=== PATIENT | male | born 1965 | race Caucasian/White ===

== ENCOUNTER 2018-06-18 01:20 | Emergency (ER) | payer OTHER ==
[2018-06-18] MEDS ORDERED: predniSONE 20 MG TAB ONE (01:46)
[2018-06-18] MEDS ORDERED: COLCHICINE 0.6 MG TAB ONE ×2 (01:47→02:46)
[2018-06-18] MEDS ORDERED: INDOMETHACIN 25 MG CAP ONE (02:02)
--- NOTE | 2018-06-18 02:43 | EDPHYS ---
Physician Documentation [facility] Name: Triston Swanson Age: 53 yrs Sex: Male : 1965 Arrival Date: 06/18/2018 Time: 01:21 Bed 25 Private MD: ED Physician Lenny Carvalho HPI: 06/18 02:12 This 53 yrs old Male presents to ER via Ambulatory with complaints of Gout \T\ jr8 Arthritis Flare up. 02:12 Patient with history of gout. Stated that she started to have another flare up. Pain in jr8 joints of fingers and hands along with left elbow and left knee. Last flare up was 4 months ago . Severity of symptoms: At their worst the symptoms were moderate in the emergency department the symptoms are unchanged. The patient has experienced similar episodes in the past, a few times. The patient has not recently seen a physician. Historical: - Allergies: 01:37 No Known Allergies; mg2 - Home Meds: 01:37 lisinopril Oral [Active]; Metoprolol Tartrate Oral [Active]; mg2 - PMHx: 01:37 Depression; Hypertension; Gout; mg2 - PSHx: 01:37 left arm surgery; mg2 - Immunization history:: Flu vaccine is not up to date. - Social history:: Smoking status: Patient/guardian denies using tobacco, Patient uses alcohol, weekly. - Ebola Screening: : No symptoms or risks identified at this time. ROS: 02:12 Eyes: Negative for injury, pain, redness, and discharge, ENT: Negative for injury, jr8 pain, and discharge, Neck: Negative for injury, pain, and swelling, Cardiovascular: Negative for chest pain, palpitations, and edema, Respiratory: Negative for shortness of breath, cough, wheezing, and pleuritic chest pain, Abdomen/GI: Negative for abdominal pain, nausea, vomiting, diarrhea, and constipation, Back: Negative for injury and pain, Skin: Negative for injury, rash, and discoloration, Neuro: Negative for headache, weakness, numbness, tingling, and seizure. 02:12 MS/extremity: Positive for pain, swelling, tenderness, of the right hand and left hand, left knee, left elbow . Exam: 02:12 Eyes: Pupils equal round and reactive to light, extra-ocular motions intact. Lids and jr8 lashes normal. Conjunctiva and sclera are non-icteric and not injected. Cornea within normal limits. Periorbital areas with no swelling, redness, or edema. ENT: Nares patent. No nasal discharge, no septal abnormalities noted. Tympanic membranes are normal and external auditory canals are clear. Oropharynx with no redness, swelling, or masses, exudates, or evidence of obstruction, uvula midline. Mucous membranes moist. Neck: Trachea midline, no thyromegaly or masses palpated, and no cervical lymphadenopathy. Supple, full range of motion without nuchal rigidity, or vertebral point tenderness. No Meningismus. Cardiovascular: Regular rate and rhythm with a normal S1 and S2. No gallops, murmurs, or rubs. Normal PMI, no JVD. No pulse deficits. Respiratory: Lungs have equal breath sounds bilaterally, clear to auscultation and percussion. No rales, rhonchi or wheezes noted. No increased work of breathing, no retractions or nasal flaring. Abdomen/GI: Soft, non-tender, with normal bowel sounds. No distension or tympany. No guarding or rebound. No evidence of tenderness throughout. Back: No spinal tenderness. No costovertebral tenderness. Full range of motion. Skin: Warm, dry with normal turgor. Normal color with no rashes, no lesions, and no evidence of cellulitis. Neuro: Awake and alert, GCS 15, oriented to person, place, time, and situation. Cranial nerves II-XII grossly intact. Motor strength 5/5 in all extremities. Sensory grossly intact. Cerebellar exam normal. Normal gait. 02:12 Musculoskeletal/extremity: ROM: intact in all extremities, Circulation is intact in all extremities. Sensation intact. Tophi noted to PIP knuckles of both hands. Left knee, and left elbow. Mild swelling of those areas as well with tenderness to palpation . Vital Signs: 01:37 BP 168 / 121; Pulse 106; Resp 18; Temp 98.6(O); Pulse Ox 98% on R/A; Weight 99.79 kg; mg2 Height 5 ft. 7 in. (170.18 cm); Pain 8/10; 02:07 BP 140 / 100; Pulse 92; Resp 18; Pulse Ox 97% ; mg2 03:01 BP 142 / 100; Pulse 90; Resp 18; Pulse Ox 100% on R/A; Pain 4/10; mg2 01:37 Body Mass Index 34.46 (99.79 kg, 170.18 cm) mg2 MDM: 01:26 Patient medically screened. jr8 02:12 Data reviewed: vital signs, nurses notes, and as a result, I will discharge patient. jr8 Data interpreted: Pulse oximetry: on room air is 97 %. Interpretation: normal. Counseling: I had a detailed discussion with the patient and/or guardian regarding: the historical points, exam findings, and any diagnostic results supporting the discharge/admit diagnosis, the need for outpatient follow up, a family practitioner, to return to the emergency department if symptoms worsen or persist or if there are any questions or concerns that arise at home. 02:42 Response to treatment: the patient's symptoms have markedly improved after treatment. jr8 Administered Medications: 01:52 Drug: predniSONE 60 mg Route: PO; mg2 02:58 Follow up: Response: No adverse reaction; Medication administered at discharge. mg2 01:52 Drug: Colcrys 1.2 mg Route: PO; mg2 02:58 Follow up: Response: No adverse reaction; Marked relief of symptoms mg2 02:07 Drug: Indomethacin 50 mg Route: PO; mg2 02:58 Follow up: Response: No adverse reaction; Marked relief of symptoms mg2 02:52 Drug: Colcrys 0.6 mg Route: PO; mg2 02:57 Follow up: Response: No adverse reaction; Medication administered at discharge. mg2 Disposition: 06:53 Co-signature as Attending Physician, Lenny Carvalho MD I agree with the assessment and ps1 plan of care. Disposition: 06/18/18 02:42 Discharged to Home. Impression: Gout. - Condition is Stable. - Discharge Instructions: Gout. - Prescriptions for indomethacin 50 mg Oral capsule - take 1 capsule by ORAL route 3 times per day with food; 21 capsule. Prednisone 20 mg Oral Tablet - take 3 tablet by ORAL route once daily for 5 days; 15 tablet. Pepcid 20 mg Oral Tablet - take 1 tablet by ORAL route every 12 hours for 5 days; 10 tablet. - Medication Reconciliation Form, Thank You Letter, Antibiotic Education, Prescription Opioid Use form. - Follow up: Private Physician; When: 2 - 3 days; Reason: Recheck today's complaints, Continuance of care, Re-evaluation by your physician. - Problem is new. - Symptoms have improved. Signatures: Indra Kincaid PA PA jr8 Singer, Phillip, MD MD ps1 Orlando Acevedo, RN RN mg2 Corrections: (The following items were deleted from the chart) 03:02 02:42 06/18/2018 02:42 Discharged to Home. Impression: Gout. Condition is Stable. Forms mg2 are Medication Reconciliation Form, Thank You Letter, Antibiotic Education, Prescription Opioid Use. Follow up: Private Physician; When: 2 - 3 days; Reason: Recheck today's complaints, Continuance of care, Re-evaluation by your physician. Problem is new. Symptoms have improved. jr8
--- NOTE | 2018-06-18 02:43 | ER ---
Nurse's Notes [facility] Name: Triston Swanson Age: 53 yrs Sex: Male : 1965 Arrival Date: 06/18/2018 Time: 01:21 Bed 25 Private MD: Diagnosis: Gout Presentation: 06/18 01:34 Presenting complaint: Patient states: he has gouty arthritis flare up for 3 days now. mg2 he is on steroids medication but not on any anti gout drugs. 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 Transition of care: patient was not received from another setting of care. Onset of symptoms was June 14, 2018. Risk Assessment: Do you want to hurt yourself or someone else? Patient reports no desire to harm self or others. Initial Sepsis Screen: Does the patient meet any 2 criteria? No. Patient's initial sepsis screen is negative. Does the patient have a suspected source of infection? No. Patient's initial sepsis screen is negative. Care prior to arrival: None. 01:34 Method Of Arrival: Ambulatory mg2 01:34 Acuity: SONA 4 mg2 Historical: - Allergies: 01:37 No Known Allergies; mg2 - Home Meds: 01:37 lisinopril Oral [Active]; Metoprolol Tartrate Oral [Active]; mg2 - PMHx: 01:37 Depression; Hypertension; Gout; mg2 - PSHx: 01:37 left arm surgery; mg2 - Immunization history:: Flu vaccine is not up to date. - Social history:: Smoking status: Patient/guardian denies using tobacco, Patient uses alcohol, weekly. - Ebola Screening: : No symptoms or risks identified at this time. Screenin:54 Abuse screen: Denies threats or abuse. Denies injuries from another. Nutritional mg2 screening: No deficits noted. Tuberculosis screening: No symptoms or risk factors identified. Fall Risk None identified. Assessment: 01:53 General: Appears uncomfortable, Behavior is calm, cooperative. Pain: Complains of pain mg2 in all the joints Pain does not radiate. Pain currently is 8 out of 10 on a pain scale. Quality of pain is described as aching, Pain began 2-3 days ago. Is intermittent. Neuro: Level of Consciousness is awake, alert, obeys commands, Oriented to person, place, time, situation. Cardiovascular: Capillary refill < 3 seconds Patient's skin is warm and dry. Respiratory: Airway is patent Respiratory effort is even, unlabored, Respiratory pattern is regular, symmetrical. GI: No signs and/or symptoms were reported involving the gastrointestinal system. : No signs and/or symptoms were reported regarding the genitourinary system. EENT: No signs and/or symptoms were reported regarding the EENT system. Derm: Skin is intact. Musculoskeletal: Circulation, motion, and sensation intact. Swelling present in upper and lower extremities. 03:01 Reassessment: Patient appears in no apparent distress at this time. Patient and/or mg2 family updated on plan of care and expected duration. Pain level reassessed. Patient is alert, oriented x 3, equal unlabored respirations, skin warm/dry/pink. Vital Signs: 01:37 BP 168 / 121; Pulse 106; Resp 18; Temp 98.6(O); Pulse Ox 98% on R/A; Weight 99.79 kg; mg2 Height 5 ft. 7 in. (170.18 cm); Pain 8/10; 02:07 BP 140 / 100; Pulse 92; Resp 18; Pulse Ox 97% ; mg2 03:01 BP 142 / 100; Pulse 90; Resp 18; Pulse Ox 100% on R/A; Pain 4/10; mg2 01:37 Body Mass Index 34.46 (99.79 kg, 170.18 cm) mg2 ED Course: 01:21 Patient arrived in ED. ds1 01:23 Indra Kincaid PA is PHCP. jr8 01:23 Lenny Carvalho MD is Attending Physician. jr8 01:36 Triage completed. mg2 01:38 Arm band placed on. mg2 01:54 Patient has correct armband on for positive identification. Bed in low position. Call mg2 light in reach. Side rails up X 1. Pulse ox on. NIBP on. Door closed. Warm blanket given. 01:54 No provider procedures requiring assistance completed. Patient did not have IV access mg2 during this emergency room visit. 02:07 Orlando Acevedo, KARINE is Primary Nurse. mg2 Administered Medications: 01:52 Drug: predniSONE 60 mg Route: PO; mg2 02:58 Follow up: Response: No adverse reaction; Medication administered at discharge. mg2 01:52 Drug: Colcrys 1.2 mg Route: PO; mg2 02:58 Follow up: Response: No adverse reaction; Marked relief of symptoms mg2 02:07 Drug: Indomethacin 50 mg Route: PO; mg2 02:58 Follow up: Response: No adverse reaction; Marked relief of symptoms mg2 02:52 Drug: Colcrys 0.6 mg Route: PO; mg2 02:57 Follow up: Response: No adverse reaction; Medication administered at discharge. mg2 Outcome: 02:42 Discharge ordered by MD. judd 03:01 Discharged to home ambulatory. mg2 03:01 Condition: improved 03:01 Discharge instructions given to patient, Instructed on discharge instructions, follow up and referral plans. medication usage, Demonstrated understanding of instructions, follow-up care, medications, Prescriptions given X 3. 03:02 Patient left the ED. mg2 Signatures: Tona Segovia ds1 Indra Kincaid PA PA jr8 Orlando Acveedo, RN RN mg2
[2018-06-18 03:12] VITALS: TEMP 98.6
[2018-06-18 03:15] VITALS: BP 142/100; O2SAT 100
== END 2018-06-18 03:02 | disposition home or self-care (01) ==
LOC: ER 01:20
DX: M10.9 Gout, unspecified (principal); I10 Essential (primary) hypertension; F32.9 Major depressive disorder, single episode, unspecified
CPT/HCPCS: 99283; J7512

== ENCOUNTER 2018-07-09 04:28 | Observation (INO) | payer OTHER ==
[2018-07-09] MEDS ORDERED: ONDANSETRON 4 MG/2 ML VIAL ONE ×2 (04:55→09:05)
[2018-07-09] MEDS ORDERED: NA CHLORIDE 0.9% 1,000 ML ONE ×2 (04:55→05:43)
[2018-07-09] MEDS ORDERED: MORPHINE 4 MG/ML SYR ONE (04:55)
[2018-07-09] MEDS ORDERED: LABETALOL HCL 100 MG/20 ML ONE (05:03)
[2018-07-09] MEDS ORDERED: LABETALOL 20 MG/4ML SYRINGE IV ONE (05:03)
[2018-07-09] MEDS ORDERED: PROMETHAZINE 25 MG/ML VIAL ONE (05:35)
[2018-07-09 05:43] LABS: Albumin 3.6 g/dL (3.4-5.0); Bilirubin Direct 0.5 mg/dL (0-0.2); Bilirubin Total 0.9 mg/dL (0.2-1.0); Potassium 3.6 mmol/L (3.5-5.1); Protein, Total 8.3 g/dL (6.4-8.2)
[2018-07-09 05:44] LABS: Absolute Lymphocytes (CBC) 1.3 K/uL (0.7-4.9); Absolute Monocytes 0.6 K/uL (0.1-1.3); Absolute Neutrophil 7.9 K/uL (1.8-8.0); Basophils % 0.5 % (0-1.3); Eosinophils % 0.4 % (0-4.4); Hematocrit 44.3 % (39.6-49.0); Lymphocytes % 12.8 % (15.3-44.8); MCH 32.5 pg (27.0-35.0); MCV 92.7 fL (80-100); MPV 8.7 fL (7.6-11.3); Monocytes % 6.2 % (3.3-12.3); RBC Red Blood Cell Count 4.78 M/uL (4.33-5.43)
--- NOTE | 2018-07-09 07:03 | RAD REPORT ---
EXAM DESCRIPTION: CT - Abdomen Pelvis W Contrast - 07/09/2018 6:40 am CLINICAL HISTORY: Abdominal pain A preliminary report was provided at the time of the study and reviewed prior to final report. COMPARISON: CT study August 2016 TECHNIQUE: Biphasic, helical CT imaging of the abdomen and pelvis was performed following 100 ml non -ionic IV contrast. Oral contrast was given. All CT scans are performed using dose optimization technique as appropriate and may include automated exposure control or mA/KV adjustment according to patient size. FINDINGS: No suspicious findings in the lung bases. The liver, spleen, and pancreas show no suspicious findings. Gallbladder and biliary tree are also wi thout suspicious finding. Gallstones can be occult on CT imaging. Liver is borderline fatty infiltrat ed. Symmetric renal function is seen with no hydronephrosis or suspicious renal mass. No pyelonephritis. No urinary bladder abnormality. Adrenal glands are normal. No dilated bowel loops or bowel wall thickening. No free air, free fluid or inflammatory stranding. No mass or bulky lymphadenopathy. Patient has a very small incidental umbilical hernia containing on ly fat. No suspicious bony findings. IMPRESSION: Contrast enhanced CT abdomen and pelvis showing no significant or suspicious finding. T he above detailed findings are without significant change from prior imaging.
--- NOTE | 2018-07-09 07:17 | ER ---
Nurse's Notes [facility] Name: Triston Swanson Age: 53 yrs Sex: Male : 1965 Arrival Date: 07/09/2018 Time: 04:31 Bed 14 Private MD: Diagnosis: Intractable vomiting. Abdominal pain. Dehydration Presentation: 07/09 04:37 Presenting complaint: Patient states: Have being vomiting for the whole night and ao abdominal pain. Patient reports about 10 times vomiting. Patient also complains of high blood pressure. Patient denies diarrhea or fever. Transition of care: patient was not received from another setting of care. Onset of symptoms was July 08, 2018 at 20:00. Risk Assessment: Do you want to hurt yourself or someone else? Patient reports no desire to harm self or others. Initial Sepsis Screen: Does the patient meet any 2 criteria? HR > 90 bpm. No. Patient's initial sepsis screen is negative. Does the patient have a suspected source of infection? No. Patient's initial sepsis screen is negative. Care prior to arrival: None. 04:37 Method Of Arrival: Ambulatory ao 04:37 Acuity: SONA 3 ao Historical: - Allergies: 04:43 No Known Allergies; ao - Home Meds: 04:43 None [Active]; ao - PMHx: 04:43 Depression; Gout; Hypertension; Arthritis; ao - PSHx: 04:43 None; ao - Immunization history:: Adult Immunizations up to date. - Social history:: Smoking status: Patient/guardian denies using tobacco, Patient uses alcohol, occasionally. Patient/guardian denies using street drugs. - Ebola Screening: : Patient negative for fever greater than or equal to 101.5 degrees Fahrenheit, and additional compatible Ebola Virus Disease symptoms Patient denies exposure to infectious person Patient denies travel to an Ebola-affected area in the 21 days before illness onset. Screenin:46 Abuse screen: Denies threats or abuse. Denies injuries from another. Nutritional ao screening: No deficits noted. Tuberculosis screening: No symptoms or risk factors identified. Fall Risk None identified. Assessment: 04:43 General: Appears in no apparent distress. uncomfortable, Behavior is calm, cooperative, ao appropriate for age. Pain: Complains of pain in abdomen Pain currently is 8 out of 10 on a pain scale. Neuro: Level of Consciousness is awake, alert, obeys commands, Oriented to person, place, time, situation, Appropriate for age Moves all extremities. Full function Speech is normal, Facial symmetry appears normal. Cardiovascular: Heart tones S1 S2 Capillary refill < 3 seconds Patient's skin is warm and dry. Respiratory: Airway is patent Respiratory effort is even, unlabored, Respiratory pattern is regular, symmetrical. GI: Abdomen is obese, Reports nausea, Pain is 8 out of 10 on a pain scale. vomiting, since 2100 yesterday. : No signs and/or symptoms were reported regarding the genitourinary system. EENT: No signs and/or symptoms were reported regarding the EENT system. Derm: Skin is intact, Skin temperature is warm. Musculoskeletal: Range of motion: intact in all extremities. 05:40 Reassessment: Patient appears in no apparent distress at this time. Patient and/or ao family updated on plan of care and expected duration. Pain level reassessed. Patient is alert, oriented x 3, equal unlabored respirations, skin warm/dry/pink. Patient to try drink contrast to be scan. If patient is unable can be scan without oral contrat per Dr Chandler. 06:35 Reassessment: Patient appears in no apparent distress at this time. Patient and/or ao family updated on plan of care and expected duration. Pain level reassessed. Patient is alert, oriented x 3, equal unlabored respirations, skin warm/dry/pink. Patient unable to drink contrast. Patient o be scan without oral contrast. 07:11 General: Appears in no apparent distress. uncomfortable, Smells of alcohol. Pain: hj Complains of pain in left upper quadrant and right upper quadrant and abdomen Pain currently is 4 out of 10 on a pain scale. Neuro: Level of Consciousness is awake, alert, obeys commands, Oriented to person, place, time, situation, Appropriate for age Moves all extremities. Full function Speech is normal, Facial symmetry appears normal. Cardiovascular: Heart tones S1 S2 Capillary refill < 3 seconds Patient's skin is warm and dry. Respiratory: Airway is patent Respiratory effort is even, unlabored, Respiratory pattern is regular, symmetrical. GI: Abdomen is obese, Reports nausea. : No signs and/or symptoms were reported regarding the genitourinary system. EENT: No signs and/or symptoms were reported regarding the EENT system. Derm: Skin is intact, Skin temperature is warm. Musculoskeletal: Range of motion:. 07:57 Reassessment: Patient and/or family updated on plan of care and expected duration. Pain hj level reassessed. Patient is alert, oriented x 3, equal unlabored respirations, skin warm/dry/pink. awaiting room placement;. 08:47 Reassessment: Patient and/or family updated on plan of care and expected duration. Pain hj level reassessed. Patient is alert, oriented x 3, equal unlabored respirations, skin warm/dry/pink. US in room;. Vital Signs: 04:39 BP 184 / 111; Pulse 103; Resp 20; Temp 99.7(O); Pulse Ox 96% on R/A; Weight 99.79 kg; ao Height 5 ft. 7 in. (170.18 cm); Pain 8/10; 05:29 BP 172 / 109; Pulse 94; Resp 20; Pulse Ox 94% on R/A; ao 06:10 BP 167 / 105; Pulse 92; Resp 18; Pulse Ox 97% on R/A; ao 07:20 BP 168 / 98; Pulse 90; Resp 18; Pulse Ox 97% on R/A; hj 08:48 BP 169 / 95; Pulse 91; Resp 18; Pulse Ox 98% on R/A; hj 04:39 Body Mass Index 34.46 (99.79 kg, 170.18 cm) ao ED Course: 04:31 Patient arrived in ED. al2 04:37 Eb Elmore, RN is Primary Nurse. ao 04:39 Triage completed. ao 04:43 Arm band placed on right wrist. Patient placed in an exam room, on a stretcher, on ao pulse oximetry, Patient notified of wait time. 04:43 Inserted saline lock: 20 gauge in right antecubital area, using aseptic technique. ao ,using aseptic technique. By KARNIE Tellez Blood collected. 04:46 Patient has correct armband on for positive identification. Pulse ox on. NIBP on. ao 04:51 Sherwin Chandler MD is Attending Physician. pkl 05:58 X-ray completed. Portable x-ray completed in exam room. Patient tolerated procedure kw well. 05:59 XRAY CXR (1 view) In Process Unspecified. EDMS 06:[address] via stretcher. kw1 06:40 CT Abd/Pelvis - W/Contrast In Process Unspecified. EDMS 06:41 CT completed. Patient tolerated procedure well. Patient moved back from CT. kw1 07:13 Report received from KARINE Parson. hj 07:15 Johnny Adames DO is Hospitalizing Provider. pkl 08:33 Urine collected: clean catch specimen, clear. mh5 08:34 Urine Microscopic Only Sent. mh5 08:52 Ultrasound completed. Other: AT BEDSIDE/PORTABLE. aa4 09:26 No provider procedures requiring assistance completed. Patient admitted, IV remains in hj place. intact. Administered Medications: 04:50 Drug: NS 0.9% 1000 ml Route: IV; Rate: 1000 ml; Site: right antecubital; ao 06:50 Follow up: IV Status: Completed infusion; IV Intake: 1000ml hj 04:50 Drug: morphine 4 mg Route: IVP; Site: right antecubital; ao 05:23 Follow up: Response: No adverse reaction ao 04:52 Drug: Zofran 4 mg Route: IVP; Site: right antecubital; ao 05:23 Follow up: Response: No adverse reaction ao 05:00 Drug: Trandate 20 mg Route: IVP; Site: right antecubital; ao 05:24 Follow up: Response: No adverse reaction; Blood pressure is unchanged ao 05:35 Drug: Phenergan 12.5 mg Route: IVP; Site: right antecubital; ao 06:43 Follow up: Response: No adverse reaction; Nausea is decreased ao 05:39 Drug: NS 0.9% 1000 ml Route: IV; Rate: 125 ml/hr; Site: right antecubital; ao 09:28 Follow up: IV Status: Infusion continued upon admission hj Intake: 06:50 IV: 1000ml; Total: 1000ml. hj Outcome: 07:16 Decision to Hospitalize by Provider. pkl 09:26 Admitted to Tele accompanied by tech, via wheelchair, room 422, with chart, Report hj called to KARINE New 09:26 Condition: stable 09:26 Instructed on the need for admit, Demonstrated understanding of instructions. 09:27 Patient left the ED. hj Signatures: Dispatcher [employer] EDMS Sherwin Chandler MD MD pkl Shanel Knight aa4 Stefania Almeida Henry, RN RN hj Ortiz, Alex, RN RN ao Martinez, [facility] Tran Menjivar kw1 Evi, Josselin al2 Corrections: (The following items were deleted from the chart) 04:39 04:37 Presenting complaint: Patient states: Have being vomiting for the whole night. ao Patient report about 10 vomiting. Patient also complains of high blood pressure. Patient denies diarrhea or fever. ao 07:57 07:57 Reassessment: Patient and/or family updated on plan of care and expected hj duration. Pain level reassessed. Patient is alert, oriented x 3, equal unlabored respirations, skin warm/dry/pink. hj
--- NOTE | 2018-07-09 07:17 | EDPHYS ---
Physician Documentation [facility] Name: Triston Swanson Age: 53 yrs Sex: Male : 1965 Arrival Date: 07/09/2018 Time: 04:31 Bed 14 Private MD: ED Physician Sherwin Chandler HPI: 07/09 04:52 This 53 yrs old Male presents to ER via Ambulatory with complaints of pkl Nausea/Vomiting, High Blood Pressure. 04:52 The patient presents with abdominal pain in the upper abdomen. Onset: The pkl symptoms/episode began/occurred yesterday. The symptoms do not radiate. Associated signs and symptoms: Pertinent positives: nausea and vomiting, hypertension. Historical: - Allergies: 04:43 No Known Allergies; ao - Home Meds: 04:43 None [Active]; ao - PMHx: 04:43 Depression; Gout; Hypertension; Arthritis; ao - PSHx: 04:43 None; ao - Immunization history:: Adult Immunizations up to date. - Social history:: Smoking status: Patient/guardian denies using tobacco, Patient uses alcohol, occasionally. Patient/guardian denies using street drugs. - Ebola Screening: : Patient negative for fever greater than or equal to 101.5 degrees Fahrenheit, and additional compatible Ebola Virus Disease symptoms Patient denies exposure to infectious person Patient denies travel to an Ebola-affected area in the 21 days before illness onset. ROS: 04:56 Eyes: Negative for injury, pain, redness, and discharge, ENT: Negative for injury, pkl pain, and discharge, Neck: Negative for injury, pain, and swelling, Cardiovascular: Negative for chest pain, palpitations, and edema, Respiratory: Negative for shortness of breath, cough, wheezing, and pleuritic chest pain. 04:56 Abdomen/GI: Positive for abdominal pain, nausea and vomiting, of the right upper quadrant and left upper quadrant. 04:56 Back: Negative for acute changes. 04:56 : Negative for urinary symptoms. 04:56 MS/extremity: Negative for acute changes. 04:56 Skin: Negative for rash. 04:56 Neuro: Negative for altered mental status. Exam: 04:56 Head/Face: Normocephalic, atraumatic. Eyes: Pupils equal round and reactive to light, pkl extra-ocular motions intact. Lids and lashes normal. Conjunctiva and sclera are non-icteric and not injected. Cornea within normal limits. Periorbital areas with no swelling, redness, or edema. ENT: Nares patent. No nasal discharge, no septal abnormalities noted. Tympanic membranes are normal and external auditory canals are clear. Oropharynx with no redness, swelling, or masses, exudates, or evidence of obstruction, uvula midline. Mucous membranes moist. Neck: Trachea midline, no thyromegaly or masses palpated, and no cervical lymphadenopathy. Supple, full range of motion without nuchal rigidity, or vertebral point tenderness. No Meningismus. Chest/axilla: Normal chest wall appearance and motion. Nontender with no deformity. No lesions are appreciated. Cardiovascular: Regular rate and rhythm with a normal S1 and S2. No gallops, murmurs, or rubs. Normal PMI, no JVD. No pulse deficits. Respiratory: Lungs have equal breath sounds bilaterally, clear to auscultation and percussion. No rales, rhonchi or wheezes noted. No increased work of breathing, no retractions or nasal flaring. 04:56 Abdomen/GI: Bowel sounds: normal, Palpation: soft, mild abdominal tenderness, in the right upper quadrant and left upper quadrant. 04:56 Back: Exam negative for acute changes. 04:56 : Exam negative for acute changes. 04:56 Musculoskeletal/extremity: Exam is negative for acute changes. 04:56 Skin: Exam negative for rash. 04:56 Neuro: Orientation: is normal, Mentation: is normal, Cranial nerves: grossly normal, Motor: is normal. Vital Signs: 04:39 BP 184 / 111; Pulse 103; Resp 20; Temp 99.7(O); Pulse Ox 96% on R/A; Weight 99.79 kg; ao Height 5 ft. 7 in. (170.18 cm); Pain 8/10; 05:29 BP 172 / 109; Pulse 94; Resp 20; Pulse Ox 94% on R/A; ao 06:10 BP 167 / 105; Pulse 92; Resp 18; Pulse Ox 97% on R/A; ao 07:20 BP 168 / 98; Pulse 90; Resp 18; Pulse Ox 97% on R/A; hj 08:48 BP 169 / 95; Pulse 91; Resp 18; Pulse Ox 98% on R/A; hj 04:39 Body Mass Index 34.46 (99.79 kg, 170.18 cm) ao MDM: 04:51 Patient medically screened. pkl 07:11 Data reviewed: vital signs, nurses notes, lab test result(s), radiologic studies, CT pkl scan. 07/09 04:54 Order name: Amylase, Serum; Complete Time: 05:45 pkl 07/09 04:54 Order name: Basic Metabolic Panel; Complete Time: 05:45 pkl 07/09 04:54 Order name: CBC with Diff; Complete Time: 05:52 pkl 07/09 04:54 Order name: Creatinine for Radiology; Complete Time: 05:42 pkl 07/09 04:54 Order name: Hepatic Function; Complete Time: 05:45 pkl 07/09 04:54 Order name: Lipase; Complete Time: 05:45 pkl 07/09 04:54 Order name: Urine Microscopic Only pkl 07/09 05:22 Order name: CT Abd/Pelvis - W/Contrast pkl 07/09 05:40 Order name: XRAY CXR (1 view) pkl 07/09 08:43 Order name: Urine Dipstick--Ancillary (enter results) bd 07/09 08:57 Order name: Urine Dipstick-Ancillary EDMS 07/09 04:54 Order name: IV Saline Lock; Complete Time: 04:55 pkl 07/09 04:54 Order name: Labs collected and sent; Complete Time: 04:55 pkl 07/09 04:54 Order name: Urine Dipstick-Ancillary (obtain specimen); Complete Time: 08:34 pkl Administered Medications: 04:50 Drug: NS 0.9% 1000 ml Route: IV; Rate: 1000 ml; Site: right antecubital; ao 06:50 Follow up: IV Status: Completed infusion; IV Intake: 1000ml hj 04:50 Drug: morphine 4 mg Route: IVP; Site: right antecubital; ao 05:23 Follow up: Response: No adverse reaction ao 04:52 Drug: Zofran 4 mg Route: IVP; Site: right antecubital; ao 05:23 Follow up: Response: No adverse reaction ao 05:00 Drug: Trandate 20 mg Route: IVP; Site: right antecubital; ao 05:24 Follow up: Response: No adverse reaction; Blood pressure is unchanged ao 05:35 Drug: Phenergan 12.5 mg Route: IVP; Site: right antecubital; ao 06:43 Follow up: Response: No adverse reaction; Nausea is decreased ao 05:39 Drug: NS 0.9% 1000 ml Route: IV; Rate: 125 ml/hr; Site: right antecubital; ao 09:28 Follow up: IV Status: Infusion continued upon admission hj Disposition: 07/09/18 07:16 Hospitalization ordered by Johnny Adames for Observation. Preliminary diagnosis is Intractable vomiting. Abdominal pain. Dehydration. - Bed requested for Telemetry/MedSurg (observation). - Status is Observation. hj - Condition is Stable. - Problem is new. - Symptoms have improved. UTI on Admission? No Signatures: Dispatcher [employer] EDMS Rebeka Mcknight Pin, MD MD pkShaq Nuno RN RN hj Ortiz, Alex, RN RN ao Corrections: (The following items were deleted from the chart) 08:55 07:16 Hospitalization Ordered by Johnny Adames DO for Observation. Preliminary bd diagnosis is Intractable vomiting. Abdominal pain. Dehydration. Bed requested for Telemetry/MedSurg (observation). Status is Observation. Condition is Stable. Problem is new. Symptoms have improved. UTI on Admission? No. pkl 09:27 08:55 07/09/2018 07:16 Hospitalization Ordered by Johnny Adames DO for Observation. Preliminary diagnosis is Intractable vomiting. Abdominal pain. Dehydration. Bed requested for Telemetry/MedSurg (observation). Status is Observation. Condition is Stable. Problem is new. Symptoms have improved. UTI on Admission? No. bd
[2018-07-09] MEDS ORDERED: SODIUM CHLORIDE 0.9% 10ML INJ IV PRN (08:02)
[2018-07-09] MEDS ORDERED: ACETAMINOPHEN 500 MG TAB PO PRN (08:02)
--- NOTE | 2018-07-09 08:41 | RAD REPORT ---
EXAM DESCRIPTION: RAD - Chest Single View - 07/09/2018 6:00 am CLINICAL HISTORY: Hypertension, shortness of breath, abdominal pain with vomiting COMPARISON: August 2016 TECHNIQUE: AP portable chest image was obtained 0548 hours . FINDINGS: Lung volumes are low. No mass, consolidation or failure. Cardiomediastinal silhouette is a ccentuated by shallow inspiration, body habitus and portable technique. Trachea is midline. No vascul ar engorgement. No measurable pleural effusion and no pneumothorax. No gross bony abnormality seen. N o acute aortic findings suspected. IMPRESSION: Limited shallow inspiration film showing no acute cardiopulmonary finding. No significant interval change suspected.
[2018-07-09 08:56] LABS: Urine Bacteria <20 /HPF (NONE SEEN); Urine Culture Reflex Order NOT NEEDED
[2018-07-09 08:57] LABS: Urine Blood TRACE (NEG); Urine Glucose NEGATIVE (NEG); Urine Protein TRACE (NEG); Urine Specific Gravity 1.015 (1.005-1.030); Urine pH 8.5 (5.0-7.0)
[2018-07-09] MEDS ORDERED: ONDANSETRON 4 MG/2 ML VIAL IV PRN (08:58)
[2018-07-09] MEDS: NA CHLORIDE 0.9% 1,000 ML IV SCH ×4 (09:00→21:14)
[2018-07-09] MEDS: LISINOPRIL 10 MG TAB PO SCH (09:44)
[2018-07-09] MEDS: ENOXAPARIN 40 MG/0.4 ML SQ SCH (09:44)
[2018-07-09] MEDS: PROMETHAZINE 25 MG/ML VIAL IV PRN ×2 (09:45→14:54)
[2018-07-09] MEDS: PANTOPRAZOLE 40 MG INJ IVP SCH (09:45)
[2018-07-09] MEDS: LACTOBACILLUS/ACIDOPHILUS TAB PO SCH ×2 (09:49→20:24)
[2018-07-09 09:50] VITALS: BMI 34.2
--- NOTE | 2018-07-09 09:52 | RAD REPORT ---
EXAM DESCRIPTION: US - Abdomen Exam Complete - 07/09/2018 9:01 am CLINICAL HISTORY: Abdominal pain COMPARISON: CT July 09 FINDINGS: Gallbladder size is normal. No gallstones, wall thickening or pericholecystic fluid. Commo n bile duct is normal with no common duct stone identified. Liver shows coarsened echogenicity that i s probably a mild diffuse fatty infiltration. No focal liver lesion was identifiable. No focal spleni c abnormality. The pancreas is obscured. No pancreatic or peripancreatic abnormality on the CT study . No hydronephrosis or suspicious mass in either kidney. Aorta and IVC are grossly normal but limited in assessment. No ascites or bulky lymphadenopathy seen. Overall the exam has significant limitation due to body habitus and prominent bowel. IMPRESSION: No gallbladder or biliary tree abnormality. Mild diffuse fatty infiltration of the liver.
--- NOTE | 2018-07-09 10:52 | P.HP ---
Certification for Inpatient Patient admitted to: Observation With expected LOS: <2 Midnights Patient will require the following post-hospital care: None Practitioner: I am a practitioner with admitting privileges, knowledge of patient current condition, hospital course, and medical plan of care. Services: Services provided to patient in accordance with Admission requirements found in Title 42 Section 412.3 of the Code of Federal Regulations Patient History Date of Service: 07/09/18 Primary Care Provider: None Reason for admission: Nausea/vomiting, abdominal pain History of Present Illness: 53-year-old male presented emergency room with nausea and vomiting along with abdominal pain. Pain started late last night around 7:00 a.m.. He reports that he was not feeling well throughout the day. He denied any fever, chills. Pain continued to get worse. He came to the ER for further evaluation. Patient denied any diarrhea. Subjective fever was noted. No shortness of breath, chest pain noted. In the ER patient was evaluated. Patient was given medication for pain and nausea. Blood pressure is elevated. Patient reports noncompliance with medication. On lab white count 9.8, hemoglobin 15. Sodium 141, potassium 3.6. BUN of 5, creatinine 1.4 with a GFR 57. Glucose 140. AST 38, ALT 29, alk- phos 197. Lipase unremarkable. CT scan of the abdomen showed no acute findings. Abdominal ultrasound showed no gallbladder or biliary dilation patient. Fatty liver was identified. Chest x-ray unremarkable. Patient will be admitted for observation. When I saw the patient the ER, he appeared comfortable. Patient reports a history of hypertension, gout, depression, and rheumatoid arthritis. Patient has not found a PCP in the area. He is non compliant with his blood pressure medication. Patient previously on metoprolol and lisinopril. He does not smoke. He drinks occasionally. He reports that he is disabled due to his gout and rheumatoid arthritis. Allergies No Known Drug Allergies Allergy (Verified 09/16/16 05:57) Unknown No Known Allergies Allergy (Uncoded 06/18/18 03:05) Unknown Home medications list reviewed: Yes - Past Medical/Surgical History Diabetic: No -: Hypertension -: Rheumatoid arthritis -: Gout -: Obesity -: Depression -: Left arm surgery Psychosocial/ Personal History: He is single, has 1 child that is passed on due to an MVA. He is disabled currently. He was an offshoreman. - Family History Mother -: Heart disease Father -: Hypertension, Lung disease - Social History Smoking Status: Never smoker Alcohol use: Yes CD- Drugs: No Caffeine use: Yes Place of Residence: Home Review of Systems General: As per HPI Eyes: Unremarkable ENT: Unremarkable Respiratory: Unremarkable Cardiovascular: Unremarkable Gastrointestinal: Nausea, Vomiting, Abdominal Pain, As per HPI Genitourinary: Unremarkable Musculoskeletal: Unremarkable Integumentary: Unremarkable Neurological: Unremarkable Lymphatics: Unremarkable Physical Examination - Vital Signs Temperature: 97.3 F Blood Pressure: 166/102 Pulse: 82 Respirations: 17 Pulse Ox (%): 98 - Physical Exam General: Alert, In no apparent distress, Oriented x3, Cooperative HEENT: Atraumatic, Normocephalic, PERRLA, Other (Dry mucous membranes) Neck: Supple, No Thyromegaly Respiratory: Clear to auscultation bilaterally, Normal air movement Cardiovascular: Normal pulses, Regular rate/rhythm Gastrointestinal: Normal bowel sounds, Soft and benign, Non-distended, No tenderness, No masses, No rebound, No guarding Musculoskeletal: No contractures, No erythema, No tenderness, No warmth Integumentary: No tenderness/swelling, No erythema, No warmth, No cyanosis, Other (Arthritic nodules to the fingers) Neurological: Normal speech, Normal strength at 5/5 x4 extr, Normal tone, Normal affect - Studies Laboratory Data (last 24 hrs) 07/09/18 04:40: Creatinine 1.40 H 07/09/18 04:40: WBC 9.8, Hgb 15.5, Hct 44.3, Plt Count 174 07/09/18 04:40: Sodium 141, Potassium 3.6, BUN 5 L, Creatinine 1.40 H, Glucose 140 H, Total Bilirubin 0.9, AST 38 H, ALT 29, Alkaline Phosphatase 197 H, Amylase 59, Lipase 175 Assessment and Plan - Plan Impression: Abdominal pain, nausea and vomiting likely viral gastroenteritis. Hypertension, uncontrolled, non compliant with medication Mild renal insufficiency likely from dehydration. Fatty liver Obesity with BMI 34.3 Depression Gout Rheumatoid arthritis Plan: For his abdominal pain/nausea/vomiting, will continue with IV fluids and antiemetic therapy. Suspect viral gastroenteritis. Will start with clear liquids and advance to soft diet. No antibiotics needed at this time. Will monitor closely. Patient has hypertension. This is not very well controlled as the patient reports non compliant with medication. Will restart metoprolol and lisinopril. Will have social worker aide help arrange for the patient to establish care with a local PCP to continue his care as an outpatient. Patient with fatty liver/obesity, will continue to recommend lifestyle modification education. Patient may benefit with GI evaluation as an outpatient to further address. Patient reports history of depression. Will need to obtain prior home medication to restart. Patient also reports rheumatoid arthritis/gout. Recommendation for the patient to follow up with Rheumatology as an outpatient to further address. Will provide medication as needed. I will turn the service over to Dr. Elmore tomorrow. I will go over the plan of care with her. Anticipate discharge tomorrow. Discharge Plan: Home Plan to discharge in: 24 Hours - Advance Directives Does patient have a Living Will: No Does patient have a Durable POA for Healthcare: No - Code Status/Comfort Care Code Status Assessed: Yes (Patient full code.) Time Spent Managing Pts Care (In Minutes): 55
[2018-07-09] MEDS: METOPROLOL TAR 25 MG TAB PO SCH (17:24)
[2018-07-09] MEDS: HYDRALAZINE HCL 20 MG/ML VIAL IV PRN (20:23)
[2018-07-09] MEDS: HYDROCODONE/APAP 10/325 TAB PO PRN (21:08)
[2018-07-10] MEDS: HYDROCODONE/APAP 10/325 TAB PO PRN ×3 (03:09→18:09)
[2018-07-10 04:29] LABS: Absolute Lymphocytes (CBC) 0.9 K/uL (0.7-4.9); Absolute Monocytes 0.6 K/uL (0.1-1.3); Absolute Neutrophil 5.1 K/uL (1.8-8.0); Basophils % 0.7 % (0-1.3); Eosinophils % 2.1 % (0-4.4); Hematocrit 37.7 % (39.6-49.0); Lymphocytes % 13.1 % (15.3-44.8); MCH 32.6 pg (27.0-35.0); MCV 94.1 fL (80-100); MPV 8.4 fL (7.6-11.3); Monocytes % 8.3 % (3.3-12.3); RBC Red Blood Cell Count 4.01 M/uL (4.33-5.43)
[2018-07-10 04:48] LABS: Bilirubin Total 0.9 mg/dL (0.2-1.0); Potassium 3.5 mmol/L (3.5-5.1); Protein, Total 6.6 g/dL (6.4-8.2)
[2018-07-10 04:52] LABS: Magnesium 1.3 mg/dL (1.8-2.4)
[2018-07-10] MEDS: NA CHLORIDE 0.9% 1,000 ML IV SCH ×3 (05:10→18:07)
[2018-07-10] MEDS: METOPROLOL TAR 25 MG TAB PO SCH ×2 (05:11→18:07)
[2018-07-10] MEDS ORDERED: Magnesium Sulfate 2gm IVPB 2 G/50 ML BAG IV ONE (07:00)
[2018-07-10] MEDS: LACTOBACILLUS/ACIDOPHILUS TAB PO SCH ×2 (08:38→20:27)
[2018-07-10] MEDS: ENOXAPARIN 40 MG/0.4 ML SQ SCH (08:38)
[2018-07-10] MEDS: PANTOPRAZOLE 40 MG INJ IVP SCH (08:39)
[2018-07-10] MEDS: LISINOPRIL 10 MG TAB PO SCH (08:39)
[2018-07-10] MEDS: predniSONE 20 MG TAB PO SCH ×2 (10:29→20:27)
[2018-07-10] MEDS: HYDRALAZINE HCL 20 MG/ML VIAL IV PRN ×2 (11:48→20:28)
[2018-07-10] MEDS: PROMETHAZINE 25 MG/ML VIAL IV PRN ×2 (13:17→20:53)
[2018-07-10] MEDS ORDERED: LISINOPRIL 10 MG TAB PO ONE (14:00)
--- NOTE | 2018-07-10 18:13 | PN ---
Date of Progress Note: 07/09/2018 Subjective: The patient is seen and examined. Chart reviewed and case discussed with RN. The patie nt is complaining of some pain in his joints because of his rheumatoid arthritis and asking for stero ids. The patient states that he is unable to afford his medications as he did not have Medicare Part D. Did explain him regarding GoodRx and prescription discount card. Review of Systems: Negative except as above. Medications: List reviewed. Physical Examination: Vital Signs: Temperature 97.1, heart rate 74, blood pressure 179/97, respirations 18, O2 saturation 97% on room air. General: Awake, alert, oriented, in some mild distress. Obese male, ill appearing. CV: S1, S2. No murmurs. Regular rate and rhythm. Peripheral pulses present. Respiratory: Moving air well bilaterally. No wheezing or stridor. Gastrointestinal: Abdomen is soft, nontender, nondistended. Positive bowel sounds. Extremities: No clubbing, cyanosis, or edema. Musculoskeletal: Does have some arthritic changes at the hands and some swelling of his right knee. Neurologic: Nonfocal. Laboratory Data: Sodium 123, potassium 3.5, chloride 107, CO2 29, BUN 6, creatinine 1.3, glucose 95, calcium 7.6, magnesium 1.3. WBC 6.7, H and H 13.1 and 37.7, platelets 138, neutrophils 75%. Assessment And Plan: A 53-year-old male with: 1.Abdominal pain, generalized, likely due to viral gastroenteritis. 2.Intractable nausea and vomiting. We will continue with antiemetics. The patient unable to tolera te GI soft diet. We will step down to full liquids. 3.Essential hypertension, uncontrolled. We will adjust home medications. 4.Noncompliance. 5.Acute kidney injury secondary to prerenal azotemia, corrected. 6.Fatty liver disease, counseled. 7.Obesity, BMI 34.3. 8.Major depressive disorder. Continue home medications. 9.Gout. 10.Rheumatoid arthritis, on steroids. /IGOR Voice ID: [id number] Report ID: [id number]
[2018-07-10] MEDS ORDERED: MAGNESIUM SULFATE 1 gm IVPB 1 GM/100 ML BAG IV ONE (19:00)
[2018-07-11 04:23] LABS: Absolute Lymphocytes (CBC) 0.5 K/uL (0.7-4.9); Absolute Monocytes 0.1 K/uL (0.1-1.3); Absolute Neutrophil 7.1 K/uL (1.8-8.0); Basophils % 0.4 % (0-1.3); Hematocrit 40.8 % (39.6-49.0); Lymphocytes % 6.7 % (15.3-44.8); MCV 95.1 fL (80-100); MPV 8.5 fL (7.6-11.3); Monocytes % 1.9 % (3.3-12.3); RBC Red Blood Cell Count 4.29 M/uL (4.33-5.43)
[2018-07-11 04:30] LABS: Albumin 3.1 g/dL (3.4-5.0); Magnesium 2.2 mg/dL (1.8-2.4); Potassium 4.2 mmol/L (3.5-5.1); Protein, Total 7.3 g/dL (6.4-8.2)
[2018-07-11 05:21] LABS: Blood Morphology Comment NOT SEEN (NOT SEEN); Platelet Estimate ADEQ
[2018-07-11] MEDS: METOPROLOL TAR 25 MG TAB PO SCH (05:34)
[2018-07-11] MEDS: predniSONE 20 MG TAB PO SCH (08:49)
[2018-07-11] MEDS: LACTOBACILLUS/ACIDOPHILUS TAB PO SCH (08:49)
[2018-07-11] MEDS: PANTOPRAZOLE 40 MG INJ IVP SCH (08:49)
[2018-07-11] MEDS: HYDRALAZINE HCL 20 MG/ML VIAL IV PRN (08:52)
[2018-07-11] MEDS: NA CHLORIDE 0.9% 1,000 ML IV SCH (08:53)
[2018-07-11] MEDS: ENOXAPARIN 40 MG/0.4 ML SQ SCH (08:53)
[2018-07-11] MEDS ORDERED: LISINOPRIL 20 MG TAB PO SCH (09:00)
[2018-07-11 10:12] VITALS: O2SAT 98
[2018-07-11 13:14] VITALS: BP 148/76; TEMP 98.2
--- NOTE | 2018-07-12 15:50 | DS ---
Date of Discharge: 07/11/2018 Consultants: No consultants. Procedures: None. Admitting Diagnoses: 1.Intractable nausea and vomiting. 2.Likely viral gastroenteritis. 3.Generalized abdominal pain. 4.Essential hypertension, uncontrolled. 5.Acute kidney injury, likely from NSAIDs and dehydration. 6.Fatty liver disease. 7.Obesity, BMI 34.3. 8.Major depressive disorder. 9.Gout. 10.Rheumatoid arthritis. Discharge Diagnoses: 1.Intractable nausea and vomiting, resolved. 2.Generalized abdominal pain secondary to viral gastroenteritis, resolved. 3.Viral gastroenteritis, resolved. 4.Essential hypertension, uncontrolled. Home medications adjusted. 5.Noncompliance. 6.Acute kidney injury, resolved. 7.Acute dehydration. 8.Fatty liver disease. Counseled on diet and exercise modification. 9.Obesity, BMI 34.3. 10.Major depressive disorder, stable. 11.Gout. 12.Rheumatoid arthritis, improved with steroids. Hospital Course: The patient is a 53-year-old male who was admitted to the hospital for nausea, vomi ting, intractable abdominal pain. The patient also had severely elevated blood pressure. He is nonc ompliant. States that he does not have Medicare Part D, cannot afford his medications. I explained to him that the metoprolol and lisinopril are on the 4-dollar plan at [facility]. He voiced understand ing. The patient was placed as n.p.o., was given IV fluids, and resuscitated. The patient did have some acute kidney injury, which improved. This was secondary to prerenal azotemia and acute dehydrat ion. He did have some low magnesium, which was replaced. The patient's condition improved slowly. He was able to tolerate a clear liquid diet and was advanced to a soft diet, which he was able to checo p down. Denies any further nausea, vomiting. No diarrhea. The patient's CT scan of the abdomen and pelvis showed no significant or suspicious findings. Did show fatty liver disease, for which he was counseled. He understands that uncontrolled fatty liver disease in 10-20 years may lead to liver ci rrhosis and need for transplant if not . He is recommended to have diet and exercise regimen. The patient did have some acute flare-up of his rheumatoid arthritis. He was placed on steroids, whi ch improved his condition. The patient states that he has tried allopurinol for his gout before; how ever, did not work for him, and the febuxostat, the other medication, is too expensive for him, he ca nnot afford it. The patient did request refills for his blood pressure medications. The patient was then doing well. His blood pressure was well controlled. He was able to tolerate his diet and ambu late without any difficulty. He was then discharged home in a stable condition. Activity: Ad gianluca. Diet: Heart healthy. Followup: Follow up with primary care physician or establish care with one in 1-2 weeks. Return to ER for worsening condition. Establish scare with sales and marketing executive. Medications: As per medication reconciliation list, decreased ibuprofen use, use only as directed. Physical Examination: General: Awake, alert, oriented, no acute distress. CV: S1, S2. No murmurs. Respiratory: Moving air well bilaterally. Abdomen: Soft, nontender, nondistended. Positive bowel sounds. No guarding or rigidity. Extremities: No clubbing, cyanosis, edema. Neurologic: Nonfocal. SA/MODL Voice ID: [id number] Report ID: [id number]
== END 2018-07-11 11:17 | disposition home or self-care (01) ==
LOC: ER 04:28 → ERHOLD 07:18 → 4TH 09:12
PROVIDERS: ADMIT Family Medicine; ATTEND Family Medicine
DX: A08.4 Viral intestinal infection, unspecified (principal); I10 Essential (primary) hypertension; N18.9 Chronic kidney disease, unspecified; E86.0 Dehydration; Z91.19 Patient's noncompliance with other medical treatment and regimen; K76.0 Fatty (change of) liver, not elsewhere classified; E66.9 Obesity, unspecified; Z68.34 Body mass index [BMI] 34.0-34.9, adult; F32.9 Major depressive disorder, single episode, unspecified; M10.9 Gout, unspecified; M06.9 Rheumatoid arthritis, unspecified
CPT/HCPCS: 36415; 71045; 74177; 76700; 80048; 80053; 80076; 81003; 81015; 82150; 83690; 83735; 85025; 96361; 96374; 96375; 99285; C9113; G0378; J0360; J1650; J2405; J2550; J3475; J7030; J7512; Q9967

== ENCOUNTER 2018-07-17 03:10 | Emergency (ER) | payer OTHER ==
[2018-07-17] MEDS ORDERED: ONDANSETRON 4 MG/2 ML VIAL ONE (03:28)
[2018-07-17] MEDS ORDERED: NA CHLORIDE 0.9% 1,000 ML ONE (03:29)
[2018-07-17 04:02] LABS: Absolute Lymphocytes (CBC) 1.9 K/uL (0.7-4.9); Absolute Monocytes 0.5 K/uL (0.1-1.3); Absolute Neutrophil 11.1 K/uL (1.8-8.0); Basophils % 0.4 % (0-1.3); Eosinophils % 0.7 % (0-4.4); Hematocrit 46.8 % (39.6-49.0); Lymphocytes % 13.9 % (15.3-44.8); MCH 32.1 pg (27.0-35.0); MCV 93.8 fL (80-100); MPV 8.5 fL (7.6-11.3); Monocytes % 3.7 % (3.3-12.3); RBC Red Blood Cell Count 4.99 M/uL (4.33-5.43)
[2018-07-17 04:10] LABS: Albumin 3.6 g/dL (3.4-5.0); Bilirubin Direct 0.6 mg/dL (0-0.2); Bilirubin Total 1.3 mg/dL (0.2-1.0); Potassium 3.5 mmol/L (3.5-5.1); Protein, Total 7.6 g/dL (6.4-8.2)
[2018-07-17] MEDS ORDERED: PROMETHAZINE 25 MG/ML VIAL ONE (04:15)
--- NOTE | 2018-07-17 06:54 | EDPHYS ---
Physician Documentation [facility] Name: Triston Swanson Age: 53 yrs Sex: Male : 1965 Arrival Date: 07/17/2018 Time: 03:11 Bed 24 Private MD: ED Physician Primo Moran HPI: 07/17 06:52 This 53 yrs old Male presents to ER via Ambulatory with complaints of tw4 Vomiting, Dont feel good. 06:52 The patient presents to the emergency department with. Onset: The symptoms/episode tw4 began/occurred today. Possible causes: unknown. The symptoms are aggravated by nothing. The symptoms are alleviated by nothing. Associated signs and symptoms: The patient has no apparent associated signs or symptoms. Severity of symptoms: At their worst the symptoms were moderate in the emergency department the symptoms are unchanged. The patient has not experienced similar symptoms in the past. Historical: - Allergies: 03:28 No Known Allergies; bb - Home Meds: 03:25 Metoprolol Tartrate Oral [Active]; Lisinopril Oral [Active]; bb - PMHx: 03:25 Arthritis; Depression; Gout; Hypertension; bb - PSHx: 03:25 None; bb - Immunization history:: Adult Immunizations unknown. - Ebola Screening: : No symptoms or risks identified at this time. - Social history:: Smoking status: Patient/guardian denies using tobacco, Patient uses alcohol, occasionally. Patient/guardian denies using street drugs. ROS: 06:52 Constitutional: Negative for fever, chills, and weight loss, Cardiovascular: Negative tw4 for chest pain, palpitations, and edema, Respiratory: Negative for shortness of breath, cough, wheezing, and pleuritic chest pain, Back: Negative for injury and pain, MS/Extremity: Negative for injury and deformity. 06:52 Neuro: Negative for headache, weakness, numbness, tingling, and seizure, Psych: Negative for depression, anxiety, suicide ideation, homicidal ideation, and hallucinations. 06:52 Abdomen/GI: Positive for nausea and vomiting, nausea, vomiting, and diarrhea. Exam: 06:52 Constitutional: This is a well developed, well nourished patient who is awake, alert, tw4 and in no acute distress. Head/Face: Normocephalic, atraumatic. Chest/axilla: Normal chest wall appearance and motion. Nontender with no deformity. No lesions are appreciated. Cardiovascular: Regular rate and rhythm with a normal S1 and S2. No gallops, murmurs, or rubs. Normal PMI, no JVD. No pulse deficits. Respiratory: Lungs have equal breath sounds bilaterally, clear to auscultation and percussion. No rales, rhonchi or wheezes noted. No increased work of breathing, no retractions or nasal flaring. Abdomen/GI: Soft, non-tender, with normal bowel sounds. No distension or tympany. No guarding or rebound. No evidence of tenderness throughout. Back: No spinal tenderness. No costovertebral tenderness. Full range of motion. MS/ Extremity: Pulses equal, no cyanosis. Neurovascular intact. Full, normal range of motion. Neuro: Awake and alert, GCS 15, oriented to person, place, time, and situation. Cranial nerves II-XII grossly intact. Motor strength 5/5 in all extremities. Sensory grossly intact. Cerebellar exam normal. Normal gait. Vital Signs: 03:25 BP 144 / 94; Pulse 124; Resp 18 S; Temp 99(O); Pulse Ox 95% on R/A; Weight 99.79 kg bb (R); Height 5 ft. 7 in. (170.18 cm) (R); Pain 8/10; 04:14 BP 143 / 93; Pulse 116; Resp 20; Pulse Ox 97% on R/A; lp1 05:30 BP 136 / 93; Pulse 105; Resp 20; Pulse Ox 95% on R/A; lp1 06:15 BP 151 / 96; Pulse 113; Resp 19; Pulse Ox 98% on R/A; lp1 03:25 Body Mass Index 34.46 (99.79 kg, 170.18 cm) bb MDM: 03:14 Patient medically screened. tw4 06:52 Differential diagnosis: Nonspecific abd pain, gastritis. Data reviewed: vital signs, tw4 nurses notes. Data interpreted: Pulse oximetry: Interpretation: normal. Counseling: I had a detailed discussion with the patient and/or guardian regarding: the historical points, exam findings, and any diagnostic results supporting the discharge/admit diagnosis. Medication response: Phenergan relieved the patient's nausea, Response to treatment: There is no appreciated change of the patient's symptoms at this time. Special discussion: Based on the patient's Hx, exam, and Dx evaluation, there is no indication for emergent surgery or inpatient Tx. It is understood by the patient/guardian that if the Sx's persist or worsen they need to return immediately for re-evaluation. I discussed with the patient/guardian in detail that at this point there is no indication for admission to the hospital. It is understood, however, that if the symptoms persist or worsen the patient needs to return immediately for re-evaluation. 07/17 03:15 Order name: Amylase, Serum; Complete Time: 06:10 07/17 06:10 Interpretation: Within normal limits: JUN 63. 07/17 03:15 Order name: Basic Metabolic Panel; Complete Time: 06:10 07/17 06:10 Interpretation: GLUC 176; GFR 49; CRE 1.50. 07/17 03:15 Order name: CBC with Diff; Complete Time: 06:10 07/17 06:10 Interpretation: WBC 13.7; PLT 319; BRITNEY% 81.3; LYM% 13.9; NEUT A 11.1. 07/17 03:15 Order name: Creatinine for Radiology; Complete Time: 06:10 07/17 06:10 Interpretation: CRE 1.60; GFR 46. 07/17 03:15 Order name: Hepatic Function; Complete Time: 06:10 07/17 03:15 Order name: Lipase; Complete Time: 06:10 07/17 06:10 Interpretation: Within normal limits: LIP 227. 07/17 03:15 Order name: IV Saline Lock; Complete Time: 03:29 07/17 03:15 Order name: Labs collected and sent; Complete Time: 03:29 07/17 03:54 Order name: Abdomen with Erect XRAY Administered Medications: 03:29 Drug: NS 0.9% 1000 ml Route: IV; Rate: 1 bolus; Site: right antecubital; lp1 07:10 Follow up: IV Status: Completed infusion; IV Intake: 1000ml lp1 03:30 Drug: Zofran 4 mg Route: IVP; Site: right antecubital; lp1 04:08 Follow up: Response: Nausea unchanged lp1 04:14 Drug: Phenergan 12.5 mg Route: IVP; Site: right antecubital; lp1 05:55 Follow up: Response: Nausea is decreased lp1 Disposition: 07/17/18 06:53 Discharged to Home. Impression: Vomiting, unspecified. - Condition is Stable. - Discharge Instructions: Nausea and Vomiting, Adult. - Prescriptions for Zofran 4 mg Oral Tablet - take 1 tablet by ORAL route every 12 hours As needed; 6 tablet. - Medication Reconciliation Form, Thank You Letter, Antibiotic Education, Prescription Opioid Use form. - Follow up: Private Physician; When: Upon discharge from the Emergency Department; Reason: Recheck today's complaints, Continuance of care, Re-evaluation by your physician. - Problem is new. - Symptoms have improved. Signatures: Dispatcher [employer] [facility] Ana M Case RN RN bb Liss Hermosillo RN RN lp1 Primo Moran MD MD tw4 Corrections: (The following items were deleted from the chart) 04:20 03:54 Abdomen 1 View (KUB)+RAD.RAD.BRZ ordered. [facility] 06:53 06:53 07/17/2018 06:53 Discharged to Home. Impression: Vomiting, unspecified. Condition tw4 is Stable. Forms are Medication Reconciliation Form, Thank You Letter, Antibiotic Education, Prescription Opioid Use. Follow up: Private Physician; When: Upon discharge from the Emergency Department; Reason: Recheck today's complaints, Continuance of care, Re-evaluation by your physician. tw4 07:11 06:53 07/17/2018 06:53 Discharged to Home. Impression: Vomiting, unspecified. Condition lp1 is Stable. Forms are Medication Reconciliation Form, Thank You Letter, Antibiotic Education, Prescription Opioid Use. Follow up: Private Physician; When: Upon discharge from the Emergency Department; Reason: Recheck today's complaints, Continuance of care, Re-evaluation by your physician. Problem is new. Symptoms have improved. tw4
--- NOTE | 2018-07-17 06:54 | ER ---
Nurse's Notes [facility] Name: Triston Swanson Age: 53 yrs Sex: Male : 1965 Arrival Date: 07/17/2018 Time: 03:11 Bed 24 Private MD: Diagnosis: Vomiting, unspecified Presentation: 07/17 03:22 Presenting complaint: Patient states: he was in the hospital a week ago and treated for bb acute gout and a stomach virus pt states he went home and felt better but now it's worse again he started vomiting last night at approx 1900 and has stomach pain of 8/10 in the umbilical region pt states his heart rate got up to the 180s and he just doesn't feel right. Transition of care: patient was not received from another setting of care. Onset of symptoms was July 16, 2018. Risk Assessment: Do you want to hurt yourself or someone else? Patient reports no desire to harm self or others. Initial Sepsis Screen: Does the patient meet any 2 criteria? No. Patient's initial sepsis screen is negative. Does the patient have a suspected source of infection? No. Patient's initial sepsis screen is negative. Care prior to arrival: None. 03:22 Method Of Arrival: Ambulatory bb 03:22 Acuity: SONA 3 bb Historical: - Allergies: 03:28 No Known Allergies; bb - Home Meds: 03:25 Metoprolol Tartrate Oral [Active]; Lisinopril Oral [Active]; bb - PMHx: 03:25 Arthritis; Depression; Gout; Hypertension; bb - PSHx: 03:25 None; bb - Immunization history:: Adult Immunizations unknown. - Ebola Screening: : No symptoms or risks identified at this time. - Social history:: Smoking status: Patient/guardian denies using tobacco, Patient uses alcohol, occasionally. Patient/guardian denies using street drugs. Screenin:40 Abuse screen: Denies threats or abuse. Denies injuries from another. Nutritional lp1 screening: No deficits noted. Tuberculosis screening: No symptoms or risk factors identified. Fall Risk None identified. Assessment: 03:39 General: Appears uncomfortable, Behavior is appropriate for age. Pain: Complains of lp1 pain in epigastric area Pain currently is 7 out of 10 on a pain scale. Quality of pain is described as sharp. Neuro: Level of Consciousness is awake, alert, obeys commands, Oriented to person, place, time, situation. Cardiovascular: Patient's skin is warm and dry. Respiratory: Respiratory effort is even, unlabored. GI: Abdomen is distended, Pt is actively vomiting Bowel sounds present X 4 quads. Reports nausea, vomiting. : No signs and/or symptoms were reported regarding the genitourinary system. EENT: No signs and/or symptoms were reported regarding the EENT system. Derm: Skin is pink, warm \\T\\ dry. Musculoskeletal: Circulation, motion, and sensation intact. 04:14 Reassessment: Patient states continued nausea without any emesis. lp1 05:30 Reassessment: Patient states "the nausea comes and goes";. General: Appears in no lp1 apparent distress. Behavior is calm. 06:15 Reassessment: Patient given water for PO challenge at this time. lp1 06:53 Reassessment: Patient resting, eyes closed, respirations unlabored. lp1 Vital Signs: 03:25 BP 144 / 94; Pulse 124; Resp 18 S; Temp 99(O); Pulse Ox 95% on R/A; Weight 99.79 kg bb (R); Height 5 ft. 7 in. (170.18 cm) (R); Pain 8/10; 04:14 BP 143 / 93; Pulse 116; Resp 20; Pulse Ox 97% on R/A; lp1 05:30 BP 136 / 93; Pulse 105; Resp 20; Pulse Ox 95% on R/A; lp1 06:15 BP 151 / 96; Pulse 113; Resp 19; Pulse Ox 98% on R/A; lp1 03:25 Body Mass Index 34.46 (99.79 kg, 170.18 cm) bb ED Course: 03:11 Patient arrived in ED. es 03:14 Primo Moran MD is Attending Physician. tw4 03:17 Liss Hermosillo, KARINE is Primary Nurse. lp1 03:24 Triage completed. bb 03:25 Arm band placed on Patient placed in an exam room, on a stretcher, on pulse oximetry. bb 03:30 Initial lab(s) drawn, by me, sent to lab. Inserted saline lock: 20 gauge in right cb2 antecubital area, using aseptic technique. Blood collected. 03:40 Patient has correct armband on for positive identification. Placed in gown. Bed in low lp1 position. monitor worker on. Pulse ox on. NIBP on. 04:36 Patient moved to radiology via wheelchair. kw 04:36 X-ray completed. Patient tolerated procedure well. kw 04:36 Patient moved back from radiology. kw 04:37 Abdomen with Erect XRAY In Process Unspecified. EDMS 05:54 No provider procedures requiring assistance completed. lp1 07:11 IV discontinued, No redness/swelling at site. Pressure dressing applied. lp1 Administered Medications: 03:29 Drug: NS 0.9% 1000 ml Route: IV; Rate: 1 bolus; Site: right antecubital; lp1 07:10 Follow up: IV Status: Completed infusion; IV Intake: 1000ml lp1 03:30 Drug: Zofran 4 mg Route: IVP; Site: right antecubital; lp1 04:08 Follow up: Response: Nausea unchanged lp1 04:14 Drug: Phenergan 12.5 mg Route: IVP; Site: right antecubital; lp1 05:55 Follow up: Response: Nausea is decreased lp1 Intake: 07:10 IV: 1000ml; Total: 1000ml. lp1 Outcome: 06:53 Discharge ordered by . tw4 07:11 Discharged to home ambulatory. lp1 07:11 Condition: good 07:11 Discharge instructions given to patient, Instructed on discharge instructions, follow up and referral plans. medication usage, Demonstrated understanding of instructions, follow-up care, medications, Prescriptions given X 1. 07:11 Patient left the ED. lp1 Signatures: Dispatcher [employer] Mireya Durand Brenda, RN RN Stefania Herrmann Laura, KARINE RN lp1 Mike De Santiago Terrence, MD MD tw4
[2018-07-17 07:30] VITALS: TEMP 99
[2018-07-17 07:34] VITALS: BP 151/96; O2SAT 98
--- NOTE | 2018-07-17 08:32 | RAD REPORT ---
EXAM DESCRIPTION: RAD - Abdomen W Erect - 07/17/2018 4:47 am CLINICAL HISTORY: Abdominal pain FINDINGS: Free air is not visualized beneath the diaphragm Air is present within nondilated small bowel in a nonspecific fashion. Air within the colon is diminished. No significant abnormal calcification is seen
== END 2018-07-17 07:11 | disposition home or self-care (01) ==
LOC: ER 03:10
DX: R11.10 Vomiting, unspecified (principal); I10 Essential (primary) hypertension
CPT/HCPCS: 36415; 74019; 80048; 80076; 82150; 83690; 85025; 96361; 96374; 96375; 99284; J2405; J2550; J7030

== ENCOUNTER 2019-01-07 07:26 | Day surgery (SDC) | payer OTHER ==
--- NOTE | 2019-01-03 14:15 | RAD REPORT ---
EXAM DESCRIPTION: RAD - Chest Pa And Lat (2 Views) - 01/03/2019 1:53 pm CLINICAL HISTORY: Preop chest, pending soft tissue wound debridement left elbow COMPARISON: June 2018 TECHNIQUE: PA and lateral views of the chest were obtained. FINDINGS: The lungs are clear. Interstitial markings match the prior study. Heart size is normal an d central vasculature is within normal limits. No pleural effusion or pneumothorax seen. No acute b talya finding noted. No aortic abnormality. No significant interval change noted. IMPRESSION: No acute cardiopulmonary process.
[2019-01-03 14:35] LABS: Absolute Lymphocytes (CBC) 0.7 K/uL (0.7-4.9); Absolute Monocytes 0.6 K/uL (0.1-1.3); Absolute Neutrophil 4.5 K/uL (1.8-8.0); Basophils % 0.4 % (0-1.3); Eosinophils % 1.5 % (0-4.4); Hematocrit 42.3 % (39.6-49.0); Lymphocytes % 11.3 % (15.3-44.8); MPV 8.4 fL (7.6-11.3); Monocytes % 10.2 % (3.3-12.3); RBC Red Blood Cell Count 4.57 M/uL (4.33-5.43)
[2019-01-03 14:56] LABS: Potassium 4.9 mmol/L (3.5-5.1)
--- NOTE | 2019-01-03 17:23 | EKG ---
Test Date: 2019-01-03 Test Time: 13:34:55 Tube Cutter Operator: TAHIRA MEASUREMENT RESULTS: Intervals: Rate: 93 VT: 154 QRSD: 90 QT: 374 QTc: 465 [place]: P: 30 VT: 154 QRS: -12 T: 36 INTERPRETIVE STATEMENTS: Normal sinus rhythm Normal ECG Compared to ECG 09/16/2016 05:09:37 Prolonged QT interval no longer present Electronically Signed On 01-03-19 17:22:41 [employer] by Casper Darden
[2019-01-07] MEDS ORDERED: Ringers Lactate 1,000 ML IV ONE (08:02)
[2019-01-07] MEDS ORDERED: CEFAZOLIN/SWI 1gm 1 GM/10 ML SYR ONE (08:03)
[2019-01-07] MEDS ORDERED: BUPIVACAINE 0.5% PF 10 ML VIAL ONE (08:27)
[2019-01-07] MEDS ORDERED: MIDAZOLAM HCL 2 MG/2 ML INJ ONE (08:34)
[2019-01-07] MEDS ORDERED: PROPOFOL 200 MG/20 ML VIAL IV ONE (08:38)
[2019-01-07] MEDS ORDERED: LIDOCAINE 2% MPF 5 ML VIAL ONE (08:39)
[2019-01-07] MEDS ORDERED: FENTANYL CITR 100 MCG/2 ML ONE (08:49)
--- NOTE | 2019-01-07 09:09 | P.BOP ---
Preoperative diagnosis: infected left anterior leg and left elbow subcutaneous massed with ulcerati Postoperative diagnosis: same Primary procedure: 1. Excisional biopsy of infected left anterior leg/knee subQ mass 3x3 cm Secondary procedure: 2. Excisional biopsy of infected left elbow subQ mass 3x4 cm Estimated blood loss: <10cc Specimen: mass Findings: mass with tofi like material possible complicated gout lesion Anesthesia: General Complications: None Transferred to: Recovery Room Condition: Good
[2019-01-07] MEDS ORDERED: MEPERIDINE HCL 25 MG/0.5 ML ONE (09:44)
[2019-01-07] MEDS ORDERED: CODEINE 30MG/APAP 300MG TAB ONE (10:06)
[2019-01-07 10:08] VITALS: TEMP 97.4; O2SAT 94
[2019-01-07 11:28] VITALS: BP 124/76
--- NOTE | 2019-01-07 11:30 | OP ---
Date of Procedure: 01/07/2019 Surgeon: Shaq Duran MD Preoperative Diagnoses: Two infected subcutaneous masses on the left anterior leg, and also left elb ow with ulceration. Postoperative Diagnoses: Two infected subcutaneous masses on the left anterior leg, and also left el bow with ulceration. Procedures: 1.Excisional biopsy of left anterior leg/knee infected subcutaneous mass, 3 x 3 cm. 2.Excisional biopsy of left elbow infected subcutaneous mass, 3 x 4 cm. Findings: Tophi like material on both places, possible, complicated, gout mass. Complications: None. Indications: This is a case of a 53-year-old patient, who came to us with 2 masses with ulceration, erythema, on left knee and elbow. The patient came for excision. Benefits, alternatives, and risks of excision were fully explained to the patient, which include but are not limited to infection, blee ding, damage to adjacent structures, anesthesia complication, nonhealing wound, HI, and even . He also understands this might not relieve any symptoms. He might need more than one surgical interv ention. He understood, and signed a consent. Description Of Procedure: The patient was brought to the operating room and placed in supine positio n. Anesthesia was done without complication. Left elbow and left knee were prepped and draped in a sterile fashion. The areas of concern were previously marked by me and the patient. We started with the left elbow. An incision was made all the way down to the subcutaneous tissue. We noticed an in flammatory mass with some white material in that area. Cannot rule out a gout. The mass was excised . The area was cleaned and irrigated. Hemostasis was obtained. After that, we went to the left kne e leg region. We once again made a wide excision of the necrotic tissue and ulcer. This led us into a mass with a material, possible gout, cannot rule out. This will be sent to the pathologist. The mass was completely excised. The area was irrigated, and then the area was packed with wet-to-dry dr essing after hemostasis and local anesthetic. The patient tolerated the procedure well. The patient was sent to Recovery in stable condition. Disposition: Home. Activity: As tolerated. No heavy lifting Followup: Follow up in my office in 1 week. Call for appointment [phone]. Dressings include wet-t o-dry dressing to the elbow and knee daily. Medications: Include Tylenol No. 3 q.4 hours p.r.n. for pain, and Bactrim DS p.o. b.i.d. COLLEEN/IGOR Voice ID: [id number] Report ID: [id number]
== END 2019-01-07 11:30 | disposition home health service (06) ==
LOC: OR 07:26
PROVIDERS: ATTEND Surgery
PROC: 0JBF0ZZ Excision of Left Upper Arm Subcutaneous Tissue and Fascia, Open Approach (ICD-10-PCS; principal; 2019-01-07 08:30)
PROC: 0JBP0ZZ Excision of Left Lower Leg Subcutaneous Tissue and Fascia, Open Approach (ICD-10-PCS; 2019-01-07 08:30)
DX: M1A.0721 Idiopathic chronic gout, left ankle and foot, with tophus (tophi) (principal); M1A.0621 Idiopathic chronic gout, left knee, with tophus (tophi); I10 Essential (primary) hypertension; Z79.899 Other long term (current) drug therapy
CPT/HCPCS: 27337; 24071; 93005; 87070; 85025; 80048; 36415; 87205; 88305; 87075; 71046; J2704; J2250; J3010; J2175; J0690; 88304

== ENCOUNTER 2019-08-22 16:12 | Observation (INO) | payer OTHER ==
[2019-08-22] MEDS ORDERED: MECLIZINE HCL 12.5 MG TAB ONE (17:14)
[2019-08-22] MEDS ORDERED: ONDANSETRON 4 MG/2 ML VIAL ONE ×2 (17:14→22:43)
[2019-08-22] MEDS ORDERED: NA CHLORIDE 0.9% 1,000 ML ONE (17:14)
--- NOTE | 2019-08-22 17:26 | RAD REPORT ---
EXAM DESCRIPTION: CT - Head Brain Wo Cont - 08/22/2019 5:21 pm CLINICAL HISTORY: DIZZINESS Headache, drowsiness COMPARISON: No comparisons TECHNIQUE: All CT scans are performed using dose optimization technique as appropriate and may inclu de automated exposure control or mA/KV adjustment according to patient size. FINDINGS: No intracranial hemorrhage, hydrocephalus or extra-axial fluid collection.Mild brain atrop hy.No areas of brain edema or evidence of midline shift. The paranasal sinuses and mastoids are clear. The calvarium is intact. IMPRESSION: No acute intracranial abnormality.
[2019-08-22 17:40] LABS: Absolute Lymphocytes (CBC) 0.5 K/uL (0.7-4.9); Basophils % 0.8 % (0-1.3); Hematocrit 46.9 % (39.6-49.0); MPV 9.3 fL (7.6-11.3); RBC Red Blood Cell Count 4.84 M/uL (4.33-5.43)
[2019-08-22 17:57] LABS: Albumin 4.1 g/dL (3.4-5.0); Bilirubin Direct 0.5 mg/dL (0-0.2); Bilirubin Total 1.6 mg/dL (0.2-1.0); Potassium 4.7 mmol/L (3.5-5.1); Protein, Total 8.2 g/dL (6.4-8.2)
[2019-08-22] MEDS ORDERED: PROMETHAZINE 25 MG/ML VIAL ONE ×3 (17:59→19:51)
[2019-08-22 18:16] LABS: Urine Blood TRACE (NEG); Urine Glucose NEGATIVE (NEG); Urine Protein 1+ (NEG); Urine pH 8.5 (5.0-7.0)
--- NOTE | 2019-08-22 20:18 | RAD REPORT ---
EXAM DESCRIPTION: CTAbdomen Pelvis W Contrast - 08/22/2019 8:01 pm CLINICAL HISTORY: Abdominal pain. ABD PAIN COMPARISON: Abdomen Pelvis W Contrast dated 07/09/2018; Abdomen Pelvis W Contrast dated 6 TECHNIQUE: Biphasic CT imaging of the abdomen and pelvis was performed with 100 ml non-ionic IV cont rast. All CT scans are performed using dose optimization technique as appropriate and may include automated exposure control or mA/KV adjustment according to patient size. FINDINGS: The lung bases are clear.Small hiatal hernia. The liver, spleen, pancreas, adrenal glands and kidneys are within normal limits. 18 mm cyst is seen cortex right kidney. No bowel obstruction, free air, free fluid or abscess. The appendix is normal. No evidence of signi ficant lymphadenopathy. No suspicious bony findings. IMPRESSION: No acute intra-abdominal or pelvic finding.
[2019-08-22 20:38] LABS: Blood Morphology Comment NOT SEEN (NOT SEEN); Platelet Estimate ADEQ; Urine White Blood Cell Casts OK
--- NOTE | 2019-08-22 21:51 | ER ---
Nurse's Notes [facility] Name: Triston Swanson Age: 54 yrs Sex: Male : 1965 Arrival Date: 08/22/2019 Time: 16:13 Bed 24 Private MD: Nabor Cruz T Diagnosis: Cyclical vomiting, intractable Presentation: 08/22 16:44 Presenting complaint: Patient states: i have abdominal pain, vomiting, fever and mg2 diarrhea last night. T-max-101 at home. Transition of care: patient was not received from another setting of care. Onset of symptoms was August 22, 2019. Risk Assessment: Do you want to hurt yourself or someone else? Patient reports no desire to harm self or others. Initial Sepsis Screen: Does the patient meet any 2 criteria? No. Patient's initial sepsis screen is negative. Does the patient have a suspected source of infection? No. Patient's initial sepsis screen is negative. Care prior to arrival: None. 16:44 Method Of Arrival: Ambulatory mg2 16:44 Acuity: SONA 3 mg2 Historical: - Allergies: 16:50 No Known Allergies; mg2 - Home Meds: 16:50 lisinopril Oral [Active]; Metoprolol Tartrate Oral [Active]; mg2 - PMHx: 16:50 Arthritis; Depression; Gout; Hypertension; mg2 - PSHx: 16:50 knee and elbow surgery; mg2 - Immunization history:: Flu vaccine is up to date. - Social history:: Smoking status: Patient/guardian denies using tobacco, Patient uses alcohol, weekly. street drugs, marijuana. - Ebola Screening: : No symptoms or risks identified at this time. Screenin:25 Abuse screen: Denies threats or abuse. Denies injuries from another. Nutritional mg2 screening: No deficits noted. Tuberculosis screening: No symptoms or risk factors identified. Fall Risk IV access (20 points). Assessment: 19:00 General: Appears in no apparent distress. comfortable, Behavior is calm, cooperative. mg2 Pain: Complains of pain in abdomen Pain does not radiate. Pain currently is 5 out of 10 on a pain scale. Quality of pain is described as aching, Pain began gradually, Is intermittent. Neuro: Level of Consciousness is awake, alert, obeys commands, Oriented to person, place, time, situation. Cardiovascular: Capillary refill < 3 seconds Patient's skin is warm and dry. Respiratory: Airway is patent Respiratory effort is even, unlabored, Respiratory pattern is regular, symmetrical. GI: Pt is actively vomiting clear fluid. GI: Reports lower abdominal pain, upper abdominal pain, diarrhea, nausea, vomiting. : No signs and/or symptoms were reported regarding the genitourinary system. EENT: No signs and/or symptoms were reported regarding the EENT system. Derm: Skin is intact, is healthy with good turgor, Skin is pink, warm \T\ dry. normal. 19:00 Musculoskeletal: Circulation, motion, and sensation intact. Capillary refill < 3 mg2 seconds. 22:07 Reassessment: patient is still vomiting. provider informed. mg2 23:20 Reassessment: patient felt better. informed about the plan for hospitalization and he mg2 agreed. Vital Signs: 16:48 BP 179 / 107; Pulse 97; Resp 18; Temp 98.6(O); Pulse Ox 100% on R/A; Weight 86.18 kg; mg2 Height 5 ft. 6 in. (167.64 cm); 18:29 Pulse 105; Resp 18; Pulse Ox 100% on R/A; mg2 20:22 BP 169 / 103; Pulse 118; Resp 18; Pulse Ox 100% on R/A; mg2 22:07 BP 163 / 116; Pulse 104; Resp 18; Pulse Ox 100% on R/A; mg2 23:18 BP 119 / 89; Pulse 113; Resp 18; Temp 99.2; Pulse Ox 100% on R/A; mg2 08/23 00:16 BP 108 / 68; Pulse 102; Resp 18; Temp 99.4; Pulse Ox 100% on R/A; Pain 0/10; mg2 08/22 16:48 Body Mass Index 30.67 (86.18 kg, 167.64 cm) mg2 ED Course: 08/22 16:13 Patient arrived in ED. as 16:13 out of town, doctor is Private Physician. as 16:13 Nabor Cruz MD is Private Physician. as 16:38 Orlando Acevedo, KARINE is Primary Nurse. mg2 16:47 Steve Caputo MD is Attending Physician. kdr 16:48 Triage completed. mg2 16:48 Arm band placed on. mg2 17:21 CT Head Brain wo Cont In Process Unspecified. EDMS 17:24 No provider procedures requiring assistance completed. Inserted saline lock: 20 gauge mg2 in right antecubital area, using aseptic technique. Blood collected. 17:25 Patient has correct armband on for positive identification. Door closed. Warm blanket mg2 given. 19:15 Attending Physician role handed off by Steve Caputo MD 19:15 Lalito Cobb MD is Attending Physician. gs 19:[address] nj 20:01 CT Abd/Pelvis - IV Contrast Only In Process Unspecified. EDMS 22:35 Al Putnam MD is Hospitalizing Provider. 08/23 00:18 Patient admitted, IV remains in place. mg2 Administered Medications: 08/22 17:23 Drug: Zofran 4 mg Route: IVP; Site: right antecubital; mg2 22:06 Follow up: Response: No adverse reaction mg2 17:24 Drug: NS 0.9% 1000 ml Route: IV; Rate: 1 bolus; Site: right antecubital; mg2 22:06 Follow up: Response: No adverse reaction; IV Status: Completed infusion; IV Intake: mg2 1000ml 17:24 Drug: Meclizine 25 mg Route: PO; mg2 22:06 Follow up: Response: No adverse reaction mg2 18:05 Drug: Phenergan 12.5 mg Route: IVP; Site: right antecubital; mg2 22:06 Follow up: Response: No adverse reaction mg2 19:06 Drug: NS 0.9% 1000 ml Route: IV; Rate: 1 bolus; Site: left forearm; mg2 22:05 Follow up: Response: No adverse reaction; IV Status: Completed infusion; IV Intake: mg2 1000ml 19:58 Drug: Phenergan 12.5 mg Route: IVP; Site: left forearm; mg2 22:05 Follow up: Response: No adverse reaction mg2 22:51 Drug: Zofran 4 mg Route: IVP; Site: left forearm; mg2 23:24 Follow up: Response: No adverse reaction; Marked relief of symptoms mg2 22:51 Drug: Dilaudid 0.5 mg Route: IVP; Site: left forearm; mg2 23:24 Follow up: Response: No adverse reaction; Marked relief of symptoms mg2 Intake: 22:05 IV: 1000ml; Total: 1000ml. mg2 22:06 IV: 1000ml; Total: 2000ml. mg2 Output: 08/23 00:17 Urine: 800ml (Voided); Total: 800ml. mg2 Outcome: 08/22 21:50 Discharge ordered by . 22:35 Decision to Hospitalize by Provider. 08/23 00:17 Admitted to Med/surg accompanied by tech, via wheelchair, room 215, with chart, Report mg2 called to KARINE Parsons Condition: stable Instructed on the need for admit, Demonstrated understanding of instructions. 00:18 Patient left the ED. mg2 Signatures: Dispatcher [employer] EDMS Steve Caputo MD MD kdr Martinez, Amelia as Jordan, Nathan nj Starr, Gregory, MD MD gs Gardose, Michele, RN RN mg2
--- NOTE | 2019-08-22 22:36 | EDPHYS ---
Physician Documentation [facility] Name: Triston Swanson Age: 54 yrs Sex: Male : 1965 Arrival Date: 08/22/2019 Time: 16:13 Bed 24 Private MD: Nabor Cruz T ED Physician Lalito Cobb HPI: 08/22 18:59 This 54 yrs old Male presents to ER via Ambulatory with complaints of Fever, kdr Nausea, Dizziness, Diarrhea. 18:59 The patient states that he has been feeling poorly since last night, States that he kdr started to have diarrhea and n/v last night, there is a component of dizziness . Onset: The symptoms/episode began/occurred gradually, last night. Severity of symptoms: At their worst the symptoms were moderate severe just prior to arrival, in the emergency department the symptoms are unchanged. The patient has experienced similar episodes in the past, a few times, States that he was seen for a "virus" last year. The patient has not recently seen a physician. Historical: - Allergies: 16:50 No Known Allergies; mg2 - Home Meds: 16:50 lisinopril Oral [Active]; Metoprolol Tartrate Oral [Active]; mg2 - PMHx: 16:50 Arthritis; Depression; Gout; Hypertension; mg2 - PSHx: 16:50 knee and elbow surgery; mg2 - Immunization history:: Flu vaccine is up to date. - Social history:: Smoking status: Patient/guardian denies using tobacco, Patient uses alcohol, weekly. street drugs, marijuana. - Ebola Screening: : No symptoms or risks identified at this time. ROS: 18:59 Constitutional: Negative for fever, chills, and weight loss, Eyes: Negative for injury, kdr pain, redness, and discharge, ENT: Negative for injury, pain, and discharge, Neck: Negative for injury, pain, and swelling, Cardiovascular: Negative for chest pain, palpitations, and edema, Respiratory: Negative for shortness of breath, cough, wheezing, and pleuritic chest pain, Back: Negative for injury and pain, : Negative for injury, bleeding, discharge, and swelling, MS/Extremity: Negative for injury and deformity, Skin: Negative for injury, rash, and discoloration, Psych: Negative for depression, anxiety, suicide ideation, homicidal ideation, and hallucinations, Allergy/Immunology: Negative for hives, rash, and allergies, Endocrine: Negative for neck swelling, polydipsia, polyuria, polyphagia, and marked weight changes, Hematologic/Lymphatic: Negative for swollen nodes, abnormal bleeding, and unusual bruising. 18:59 Abdomen/GI: Positive for abdominal pain, nausea and vomiting, nausea, vomiting, and diarrhea, abdominal cramps, Negative for abdominal distension, black/tarry stool, rectal pain, rectal bleeding, bowel incontinence. Exam: 18:59 Constitutional: This is a well developed, well nourished patient who is awake, alert, kdr and in no acute distress. Head/Face: Normocephalic, atraumatic. Eyes: Pupils equal round and reactive to light, extra-ocular motions intact. Lids and lashes normal. Conjunctiva and sclera are non-icteric and not injected. Cornea within normal limits. Periorbital areas with no swelling, redness, or edema. Neck: Trachea midline, no thyromegaly or masses palpated, and no cervical lymphadenopathy. Supple, full range of motion without nuchal rigidity, or vertebral point tenderness. No Meningismus. Chest/axilla: Normal chest wall appearance and motion. Nontender with no deformity. No lesions are appreciated. Cardiovascular: Regular rate and rhythm with a normal S1 and S2. No gallops, murmurs, or rubs. Normal PMI, no JVD. No pulse deficits. Respiratory: Lungs have equal breath sounds bilaterally, clear to auscultation and percussion. No rales, rhonchi or wheezes noted. No increased work of breathing, no retractions or nasal flaring. Back: No spinal tenderness. No costovertebral tenderness. Full range of motion. Skin: Warm, dry with normal turgor. Normal color with no rashes, no lesions, and no evidence of cellulitis. MS/ Extremity: Pulses equal, no cyanosis. Neurovascular intact. Full, normal range of motion. Neuro: Awake and alert, GCS 15, oriented to person, place, time, and situation. Cranial nerves II-XII grossly intact. Motor strength 5/5 in all extremities. Sensory grossly intact. Cerebellar exam normal. Normal gait. Psych: Awake, alert, with orientation to person, place and time. Behavior, mood, and affect are within normal limits. 18:59 Abdomen/GI: Inspection: obese Bowel sounds: active, diminished, in all quadrants, Palpation: soft. Vital Signs: 16:48 BP 179 / 107; Pulse 97; Resp 18; Temp 98.6(O); Pulse Ox 100% on R/A; Weight 86.18 kg; mg2 Height 5 ft. 6 in. (167.64 cm); 18:29 Pulse 105; Resp 18; Pulse Ox 100% on R/A; mg2 20:22 BP 169 / 103; Pulse 118; Resp 18; Pulse Ox 100% on R/A; mg2 22:07 BP 163 / 116; Pulse 104; Resp 18; Pulse Ox 100% on R/A; mg2 23:18 BP 119 / 89; Pulse 113; Resp 18; Temp 99.2; Pulse Ox 100% on R/A; mg2 08/23 00:16 BP 108 / 68; Pulse 102; Resp 18; Temp 99.4; Pulse Ox 100% on R/A; Pain 0/10; mg2 08/22 16:48 Body Mass Index 30.67 (86.18 kg, 167.64 cm) mg2 MDM: 08/22 18:59 Data reviewed: vital signs, nurses notes, lab test result(s), radiologic studies. kdr Counseling: I had a detailed discussion with the patient and/or guardian regarding: the historical points, exam findings, and any diagnostic results supporting the discharge/admit diagnosis, lab results, radiology results. 19:58 Patient medically screened. 21:47 ED course: pt seen and examined better plan discharge discussed workup findings with pt. 08/22 16:47 Order name: Basic Metabolic Panel; Complete Time: 18:22 [facility] 08/22 16:47 Order name: CBC with Diff; Complete Time: 21:03 [facility] 08/22 16:47 Order name: Creatinine for Radiology; Complete Time: 18:22 [facility] 08/22 16:47 Order name: Hepatic Function; Complete Time: 18:22 [facility] 08/22 16:47 Order name: Lipase; Complete Time: 18:22 [facility] 08/22 18:02 Order name: Urine Dipstick--Ancillary (enter results); Complete Time: 18:22 em1 08/22 17:08 Order name: CT Head Brain wo Cont; Complete Time: 18:22 [facility] 08/22 18:58 Order name: CT Abd/Pelvis - IV Contrast Only; Complete Time: 20:35 kdr 08/22 20:38 Order name: CBC Smear Scan; Complete Time: 21:03 EDMS 08/22 21:51 Order name: TSH; Complete Time: 23:25 gs 08/22 22:57 Order name: T4 Free; Complete Time: 23:25 EDMS 08/22 16:47 Order name: IV Saline Lock; Complete Time: 17:24 kdr 08/22 16:47 Order name: Labs collected and sent; Complete Time: 17:24 kdr 08/22 16:47 Order name: Urine Dipstick-Ancillary (obtain specimen); Complete Time: 18:01 kdr 08/22 22:56 Order name: CONS Pharmacy Consult EDMS 08/22 22:56 Order name: NPO EDMS Administered Medications: 17:23 Drug: Zofran 4 mg Route: IVP; Site: right antecubital; mg2 22:06 Follow up: Response: No adverse reaction mg2 17:24 Drug: NS 0.9% 1000 ml Route: IV; Rate: 1 bolus; Site: right antecubital; mg2 22:06 Follow up: Response: No adverse reaction; IV Status: Completed infusion; IV Intake: mg2 1000ml 17:24 Drug: Meclizine 25 mg Route: PO; mg2 22:06 Follow up: Response: No adverse reaction mg2 18:05 Drug: Phenergan 12.5 mg Route: IVP; Site: right antecubital; mg2 22:06 Follow up: Response: No adverse reaction mg2 19:06 Drug: NS 0.9% 1000 ml Route: IV; Rate: 1 bolus; Site: left forearm; mg2 22:05 Follow up: Response: No adverse reaction; IV Status: Completed infusion; IV Intake: mg2 1000ml 19:58 Drug: Phenergan 12.5 mg Route: IVP; Site: left forearm; mg2 22:05 Follow up: Response: No adverse reaction mg2 22:51 Drug: Zofran 4 mg Route: IVP; Site: left forearm; mg2 23:24 Follow up: Response: No adverse reaction; Marked relief of symptoms mg2 22:51 Drug: Dilaudid 0.5 mg Route: IVP; Site: left forearm; mg2 23:24 Follow up: Response: No adverse reaction; Marked relief of symptoms mg2 Disposition: 08/22/19 22:35 Hospitalization ordered by Putnam, Mohammad for Observation. Preliminary diagnosis is Cyclical vomiting, intractable. - Bed requested for Telemetry/MedSurg (observation). - Status is Observation. mg2 - Condition is Stable. - Problem is new. - Symptoms have improved. UTI on Admission? No Signatures: Dispatcher [employer] EDMS Amalia Up RN RN Steve Caputo MD MD [facility] Lalito Cobb MD MD Orlando Acevedo RN RN mg2 Corrections: (The following items were deleted from the chart) 21:50 21:50 08/22/2019 21:50 Discharged to Home. Impression: Vomiting; Diarrhea, unspecified. Condition is Stable. Forms are Medication Reconciliation Form, Thank You Letter, Antibiotic Education, Prescription Opioid Use. Follow up: Private Physician; When: 2 - 3 days; Reason: Re-evaluation by your physician. 23:10 22:35 Hospitalization Ordered by Al Putnam MD for Observation. Preliminary diagnosis is Cyclical vomiting, intractable. Bed requested for Telemetry/MedSurg (observation). Status is Observation. Condition is Stable. Problem is new. Symptoms have improved. UTI on Admission? No. 08/23 00:18 08/22 23:10 08/22/2019 22:35 Hospitalization Ordered by Al Putnam MD for mg2 Observation. Preliminary diagnosis is Cyclical vomiting, intractable. Bed requested for Telemetry/MedSurg (observation). Status is Observation. Condition is Stable. Problem is new. Symptoms have improved. UTI on Admission? No.
[2019-08-22] MEDS ORDERED: HYDROMORPHONE HCL 0.5 MG/0.5 ML INJ ONE (22:43)
[2019-08-22] MEDS ORDERED: MORPHINE 2 MG/ML SYR IV PRN (22:52)
[2019-08-22] MEDS ORDERED: ONDANSETRON 4 MG/2 ML VIAL IV PRN (22:52)
[2019-08-22] MEDS ORDERED: ACETAMINOPHEN 500 MG TAB PO PRN (22:52)
[2019-08-22 22:55] LABS: Thyroid Stimulating Hormone 6.74 uIU/mL (0.360-3.740)
[2019-08-22] MEDS ORDERED: clonazePAM 0.5 MG TAB PO ONE (23:55)
[2019-08-23] MEDS: METOCLOPRAMIDE 10 MG/2mL INJ IV SCH ×3 (00:58→11:35)
[2019-08-23] MEDS: NA CHLORIDE 0.9% 1,000 ML IV SCH ×2 (00:58→12:20)
[2019-08-23 01:10] VITALS: BMI 29.8
[2019-08-23 05:07] LABS: Absolute Lymphocytes (CBC) 0.5 K/uL (0.7-4.9); Hematocrit 39.9 % (39.6-49.0); Lymphocytes % 10.2 % (15.3-44.8); MPV 8.8 fL (7.6-11.3); RBC Red Blood Cell Count 4.16 M/uL (4.33-5.43)
[2019-08-23 05:22] LABS: Albumin 3.2 g/dL (3.4-5.0); Potassium 4.2 mmol/L (3.5-5.1); Protein, Total 7.1 g/dL (6.4-8.2)
[2019-08-23] MEDS ORDERED: METOPROLOL TARTRATE 5 MG/5 ML INJ IV STA (06:53)
[2019-08-23] MEDS ORDERED: INFLUENZA VACCINE (for 3y+) 0.5 ML DOSE IMVAC ONE (08:00)
[2019-08-23] MEDS ORDERED: carvediloL 25 MG TAB PO SCH (09:00)
[2019-08-23] MEDS ORDERED: ESCITALOPRAM 20 MG TAB PO SCH (09:00)
[2019-08-23] MEDS ORDERED: ALLOPURINOL 300 MG TAB PO SCH (09:00)
[2019-08-23] MEDS: clonazePAM 0.5 MG TAB PO SCH ×2 (09:05→13:15)
[2019-08-23] MEDS ORDERED: cloNIDine HCl 0.1 MG TAB PO ONE (10:19)
--- NOTE | 2019-08-23 10:31 | P.HP ---
Certification for Inpatient Patient admitted to: Observation With expected LOS: <2 Midnights Patient will require the following post-hospital care: None Practitioner: I am a practitioner with admitting privileges, knowledge of patient current condition, hospital course, and medical plan of care. Services: Services provided to patient in accordance with Admission requirements found in Title 42 Section 412.3 of the Code of Federal Regulations Patient History Date of Service: 08/22/19 Reason for admission: INTRACTABLE NAUSEA AND VOMITING; DIARRHEA History of Present Illness: PATIENT IS A 54-YEAR-OLD GENTLEMAN WHO CAME TO THE HOSPITAL WITH NAUSEA AND VOMITING. PATIENT WAS ALSO HAVING DIARRHEA. PATIENT HAS HAD NUMEROUS ADMISSIONS IN THE HOSPITAL FOR SIMILAR EPISODES IN THE PAST. PATIENT HAS BEEN HAVING NAUSEA AND VOMITING ALONG WITH SOME DIARRHEA FOR THE LAST 24-48 HOURS. PATIENT HAS ALSO BEEN HAVING SOME DIZZINESS. HE HAS BEEN TOLD HE HAS A VIRAL GASTROENTERITIS. THIS HAS BEEN DIAGNOSED IN THE PAST WELL. HIS REPETITIVE ADMISSIONS FOR THIS OVER THE LAST FEW YEARS IS CONCERNING FOR MORE OF A CHRONIC CONDITION. HE COULD HAVE CYCLICAL VOMITING ISSUES OR HE COULD HAVE GASTROPARESIS. THIS WILL NEED TO BE WORKED UP AND MORE DETAILS AN OUTPATIENT WITH GI. AT THIS TIME WILL GO AHEAD AND ADVANCE HIS DIET AND IF HE TOLERATES THAT THEN PLAN TO DISCHARGE HIM HOME LATER TODAY. Allergies No Known Drug Allergies Allergy (Verified 08/23/19 01:04) Unknown Home Medications: Allopurinol [Zyloprim] 300 mg PO DAILY 01/03/19 Carvedilol [Coreg] 25 mg PO BID 01/03/19 Meloxicam [Mobic] 7.5 mg PO DAILY 02/27/19 Escitalopram [Lexapro*] 20 mg PO DAILY 08/23/19 - Past Medical/Surgical History Has patient received pneumonia vaccine in the past: No Diabetic: No -: Hypertension -: Rheumatoid arthritis -: Gout -: Obesity -: Depression -: Left arm surgery -: Left elbow and knee excisional biopsies Psychosocial/ Personal History: He is single, has 1 child that is passed on due to an MVA. He is disabled currently. He was an offshoreman. - Family History Mother Medical History: Heart disease Father Medical History: Hypertension, Lung disease - Social History Smoking Status: Never smoker Alcohol use: Yes Caffeine use: Yes Place of Residence: Home Review of Systems 10-point ROS is otherwise unremarkable Physical Examination - Vital Signs Temperature: 98.5 F Blood Pressure: 166/101 Pulse: 81 Respirations: 16 Pulse Ox (%): 96 - Physical Exam General: Alert, In no apparent distress, Oriented x3 HEENT: Atraumatic, PERRLA, Mucous membr. moist/pink, EOMI, Sclerae nonicteric Neck: Supple, 2+ carotid pulse no bruit, No LAD, Without JVD or thyroid abnormality Respiratory: Clear to auscultation bilaterally, Normal air movement Cardiovascular: Regular rate/rhythm, Normal S1 S2, No murmurs Gastrointestinal: Normal bowel sounds, Soft and benign, Non-distended, No tenderness Musculoskeletal: No clubbing, No swelling, No tenderness Integumentary: No rashes Neurological: Normal gait, Normal speech, Normal strength at 5/5 x4 extr, Normal tone, Sensation intact, Cranial nerves 3-12 intact, Normal affect Lymphatics: No axilla or inguinal lymphadenopathy - Studies Laboratory Data (last 24 hrs) 08/22/19 17:25: Creatinine 1.33 H 08/22/19 17:25: WBC 6.0, Hgb 15.6, Hct 46.9, Plt Count 159 08/22/19 17:25: Sodium 136, Potassium 4.7, BUN 13, Creatinine 1.35 H, Glucose 101, Total Bilirubin 1.6 H, AST 37, ALT 27, Alkaline Phosphatase 217 H, Lipase 84 Assessment & Plan - Problems (Diagnosis) (1) Nausea and vomiting Onset Date: 07/10/18 Current Visit: No Status: Acute Qualifiers: Vomiting type: psychogenic vomiting Qualified Code(s): F50.89 - Other specified eating disorder (2) Diarrhea Current Visit: Yes Status: Acute (3) Gastroenteritis Onset Date: 09/16/16 Current Visit: No Status: Acute (4) Depression Current Visit: No Status: Acute (5) Gout Onset Date: 07/10/18 Current Visit: No Status: Acute (6) Polysubstance abuse Onset Date: 04/13/15 Current Visit: No Status: Acute (7) Hypertension Onset Date: 07/10/18 Current Visit: No Status: Chronic Qualifiers: (8) Rheumatoid arthritis Onset Date: 07/10/18 Current Visit: No Status: Chronic Qualifiers: - Plan PLAN: 1. IV FLUIDS AND IV ANTIBIOTICS 2. CONTINUE ANXIOLYTICS AND ANTIEMETICS 3. GI CONSULTATION AN OUTPATIENT; WORKUP FOR CYCLICAL VOMITING OR GASTROPARESIS 4. STRICT BLOOD PRESSURE CONTROL 5. OUTPATIENT ENDOSCOPY 6. GI AND DVT PROPHYLAXIS Discharge Plan: Home Plan to discharge in: 24 Hours - Advance Directives Does patient have a Living Will: No Does patient have a Durable POA for Healthcare: No - Code Status/Comfort Care Code Status Assessed: Yes Code Status: Full Code Critical Care: No Time Spent Managing PTS Care (In Minutes): 45
[2019-08-23 11:16] VITALS: O2SAT 96
[2019-08-23 13:10] VITALS: TEMP 98.6
[2019-08-23 13:11] VITALS: BP 167/97
--- NOTE | 2019-08-24 09:19 | P.DS ---
Discharge Date: 08/23/19 Disposition: ROUTINE DISCHARGE Discharge Condition: GOOD Reason for Admission: INTRACTABLE NAUSEA AND VOMITING; DIARRHEA - Problems (1) Nausea and vomiting Onset Date: 07/10/18 Status: Acute Qualifiers: Vomiting type: psychogenic vomiting Qualified Code(s): F50.89 - Other specified eating disorder (2) Diarrhea Status: Acute (3) Gastroenteritis Onset Date: 09/16/16 Status: Acute (4) Depression Status: Acute (5) Gout Onset Date: 07/10/18 Status: Acute (6) Polysubstance abuse Onset Date: 04/13/15 Status: Acute (7) Hypertension Onset Date: 07/10/18 Status: Chronic Qualifiers: (8) Rheumatoid arthritis Onset Date: 07/10/18 Status: Chronic Qualifiers: Brief History of Present Illness: PATIENT IS A 54-YEAR-OLD GENTLEMAN WHO CAME TO THE HOSPITAL WITH NAUSEA AND VOMITING. PATIENT WAS ALSO HAVING DIARRHEA. PATIENT HAS HAD NUMEROUS ADMISSIONS IN THE HOSPITAL FOR SIMILAR EPISODES IN THE PAST. PATIENT HAS BEEN HAVING NAUSEA AND VOMITING ALONG WITH SOME DIARRHEA FOR THE LAST 24-48 HOURS. PATIENT HAS ALSO BEEN HAVING SOME DIZZINESS. HE HAS BEEN TOLD HE HAS A VIRAL GASTROENTERITIS. THIS HAS BEEN DIAGNOSED IN THE PAST WELL. HIS REPETITIVE ADMISSIONS FOR THIS OVER THE LAST FEW YEARS IS CONCERNING FOR MORE OF A CHRONIC CONDITION. HE COULD HAVE CYCLICAL VOMITING ISSUES OR HE COULD HAVE GASTROPARESIS. THIS WILL NEED TO BE WORKED UP AND MORE DETAILS AN OUTPATIENT WITH GI. AT THIS TIME WILL GO AHEAD AND ADVANCE HIS DIET AND IF HE TOLERATES THAT THEN PLAN TO DISCHARGE HIM HOME LATER TODAY. Hospital Course: Patient's intractable nausea and vomiting has improved. Clinically patient is doing better. Patient's blood pressure remained elevated even on the beta- eladia. Will add losartan to regimen. Continue anxiolytics. Outpatient follow-up with PCP in 1-2 weeks. Vital Signs/Physical Exam: Temp Pulse Resp BP Pulse Ox 98.6 F 81 16 167/97 H 97 08/23/19 12:00 08/23/19 12:00 08/23/19 12:00 08/23/19 12:00 08/23/19 12:00 General: Alert, In no apparent distress, Oriented x3 Laboratory Data at Discharge: WBC 4.6 K/uL (4.3-10.9) D 08/23/19 04:13 Hgb 13.6 g/dL (13.6-17.9) 08/23/19 04:13 Hct 39.9 % (39.6-49.0) 08/23/19 04:13 Plt Count 131 K/uL (152-406) L 08/23/19 04:13 Sodium 141 mmol/L (136-145) 08/23/19 04:13 Potassium 4.2 mmol/L (3.5-5.1) 08/23/19 04:13 BUN 12 mg/dL (7-18) 08/23/19 04:13 Creatinine 1.20 mg/dL (0.55-1.3) 08/23/19 04:13 Glucose 90 mg/dL (74-106) 08/23/19 04:13 Total Bilirubin 1.0 mg/dL (0.2-1.0) 08/23/19 04:13 AST 25 U/L (15-37) 08/23/19 04:13 ALT 23 U/L (12-78) 08/23/19 04:13 Alkaline Phosphatase 160 U/L (45-117) H 08/23/19 04:13 Lipase 84 U/L (73-393) 08/22/19 17:25 Home Medications: Allopurinol [Zyloprim*] 300 mg PO DAILY 01/03/19 Meloxicam [Mobic*] 7.5 mg PO DAILY 02/27/19 Carvedilol [Coreg*] 25 mg PO BID #60 tab 08/23/19 Escitalopram [Lexapro*] 20 mg PO DAILY 08/23/19 clonazePAM [Klonopin*] 0.5 mg PO TID #90 tab 08/23/19 Losartan Potassium [Cozaar*] 50 mg PO BID #60 tablet 08/24/19 New Medications: Carvedilol [Coreg*] 25 mg PO BID #60 tab clonazePAM [Klonopin*] 0.5 mg PO TID #90 tab Losartan Potassium [Cozaar*] 50 mg PO BID #60 tablet Patient Discharge Instructions: OK TO DC IV AND DC HOME. FOLLOW-UP WITH PRIMARY CARE PROVIDER IN 1-2 WEEKS. FOLLOW-UP WITH GASTROENTEROLOGY IN 1-2 WEEKS. RETURN TO THE ER IF SYMPTOMS WORSEN. CALL DR. DUMONT AT [phone] IF ANY QUESTIONS REGARDING HOSPITAL STAY. PLEASE CALL THE FLOOR AT [phone] IF ANY MEDICATION OR NURSING QUESTIONS. Diet: Regular Activity: Fall precautions Time spent managing pt's care (in minutes): 25
== END 2019-08-23 16:09 | disposition home or self-care (01) ==
LOC: ER 16:12 → 2ND 23:30
PROVIDERS: ADMIT Hospitalist; ATTEND Family Medicine
DX: F50.89 Other specified eating disorder (principal); I10 Essential (primary) hypertension; M06.9 Rheumatoid arthritis, unspecified; M10.9 Gout, unspecified; E66.9 Obesity, unspecified; F32.9 Major depressive disorder, single episode, unspecified; R19.7 Diarrhea, unspecified; Z68.29 Body mass index [BMI] 29.0-29.9, adult; K52.9 Noninfective gastroenteritis and colitis, unspecified; F19.10 Other psychoactive substance abuse, uncomplicated; Z23 Encounter for immunization
CPT/HCPCS: 96361; 85025 ×2; 80048; 36415; 82947 ×2; 80076; 84443; 81003; 84439; 83690; 80053; 70450; 74177; 90471; 97116; 97161; 96375; 96374; 99285; Q9967; J2765 ×3; J2550 ×3; Q2035; J1170; J7030 ×2; J2405 ×2; G0378 ×2; J8597

== ENCOUNTER 2021-03-11 08:25 | Emergency (ER) | payer OTHER ==
--- OUTSIDE RECORDS SUMMARY | 2021-03-11 08:28 | XMS REPORT | Continuity of Care Document ---
:1965 Author Organization [facility] t Address [address] [place] [address] [address]. Avitia [address] [place] [address] Care Team Providers Name Role Phone Unavailable Unavailable Unavailable Problems This patient has no known problems. Allergies, Adverse Reactions, Alerts This patient has no known allergies or adverse reactions. Medications This patient has no known medications. Procedures This patient has no known procedures. Results This patient has no known results.
[2021-03-11] MEDS ORDERED: PROMETHAZINE INJ 25 MG/ML AMP ONE ×2 (09:08→10:43)
[2021-03-11] MEDS ORDERED: NA CHLORIDE 0.9% 1,000 ML ONE ×2 (09:09→11:51)
[2021-03-11] MEDS ORDERED: FAMOTIDINE 20 MG/2 ML VIAL IV ONE (09:09)
[2021-03-11 09:12] LABS: Absolute Lymphocytes (CBC) 0.3 K/uL (0.7-4.9); Basophils % 0.3 % (0-1.3); Hematocrit 46.7 % (39.6-49.0); MPV 8.8 fL (7.6-11.3); RBC Red Blood Cell Count 4.71 M/uL (4.33-5.43)
[2021-03-11 09:22] LABS: Albumin 4.3 g/dL (3.4-5.0); Bilirubin Direct 0.4 mg/dL (0-0.2); Bilirubin Total 1.2 mg/dL (0.2-1.0); Potassium 4.4 mmol/L (3.5-5.1); Protein, Total 9.3 g/dL (6.4-8.2)
[2021-03-11 09:50] LABS: Platelet Estimate ADEQ; Toxic Granulation 2+; White Blood Cell Scan OK (OK)
[2021-03-11 09:51] LABS: Blood Morphology Comment NOT SEEN (NOT SEEN)
[2021-03-11 09:59] LABS: SARS-COV-2 RT PCR NEGATIVE (NEGATIVE)
--- NOTE | 2021-03-11 11:16 | RAD REPORT ---
EXAM DESCRIPTION: RAD - Chest Single View - 03/11/2021 10:04 am CLINICAL HISTORY: ABDOMINAL DISTENTION COMPARISON: Two view chest December 2018 TECHNIQUE: AP portable chest image was obtained 03/11/2021 10:04 am . FINDINGS: Lung volumes are low. This accentuates baseline interstitial pattern. No Heart and vascula ture are normal. No measurable pleural effusion and no pneumothorax. No acute bony abnormality seen. No acute aortic findings suspected. IMPRESSION: No acute cardiopulmonary process. No significant change from comparison study.
--- NOTE | 2021-03-11 11:49 | RAD REPORT ---
EXAM DESCRIPTION: CT - Abdomen Pelvis W Contrast - 03/11/2021 11:17 am CLINICAL HISTORY: ABD PAIN COMPARISON: Abdomen Pelvis W Contrast dated 08/22/2019 TECHNIQUE: Biphasic, helical CT imaging of the abdomen and pelvis was performed following 100 ml non -ionic IV contrast. No oral contrast administered. All CT scans are performed using dose optimization technique as appropriate and may include automated exposure control or mA/KV adjustment according to patient size. FINDINGS: No suspicious findings in the lung bases. Very minimal hiatal hernia is present. The liver, spleen, and pancreas show no suspicious findings. Liver is borderline fatty infiltrated. N o gallbladder or biliary tree abnormality seen. Gallstones can be occult on CT imaging. Symmetric renal function is seen with no hydronephrosis or suspicious renal mass. Bilateral renal cys ts are present. No pyelonephritis or acute parenchymal process. No bladder abnormalities. No adrenal abnormalities. No dilated bowel loops or bowel wall thickening. No appendicitis is present. Patient has a few small sub centimeter mesenteric lymph nodes. Diverticulosis is rare in the sigmoid colon with no acute comp onent. No free air, free fluid or inflammatory stranding. No hernia, mass or bulky lymphadenopathy. No suspicious bony findings. IMPRESSION: Contrast enhanced CT abdomen and pelvis showing no acute or emergent finding. Nonacute findings detailed in the body of the report.
--- NOTE | 2021-03-11 12:32 | EDPHYS ---
Physician Documentation [facility] Name: Triston Swanson Age: 56 yrs Sex: Male : 1965 Arrival Date: 03/11/2021 Time: 08:28 Bed 17 Private MD: Nabor Cruz T ED Physician Lito Marie HPI: 03/11 09:33 This 56 yrs old Male presents to ER via Ambulatory with complaints of derrick Vomiting. 09:33 The patient presents to the emergency department with nausea, vomiting, diarrhea, derrick abdominal pain, of the umbilical area, right upper quadrant, left upper quadrant, right lower quadrant and left lower quadrant. Onset: The symptoms/episode began/occurred last night. Possible causes: unknown. The symptoms are aggravated by movement, pressure, food , The symptoms are alleviated by nothing. remaining still. Associated signs and symptoms: The patient has no apparent associated signs or symptoms. Severity of symptoms: At their worst the symptoms were mild moderate in the emergency department the symptoms are unchanged. The patient has not experienced similar symptoms in the past. Historical: - Allergies: 08:36 No Known Allergies; sv - Home Meds: 10:50 losartan 50 mg oral tab 1 tab once daily [Active]; alprazolam 0.5 mg Oral tab [Active]; jl7 meloxicam 15 mg oral tab 1 tab [Active]; escitalopram oxalate 20 mg oral tab [Active]; carvedilol 25 mg oral tab [Active]; allopurinol 300 mg Oral tab [Active]; - PMHx: 08:36 Arthritis; Depression; Gout; Hypertension; sv - PSHx: 08:36 knee and elbow surgery; sv - Immunization history:: Client reports having NOT received the Covid vaccine. Flu vaccine is up to date. - Social history:: Smoking status: Patient denies any tobacco usage or history of. ROS: 09:34 Constitutional: Negative for fever, chills, and weight loss, Eyes: Negative for injury, derrick pain, redness, and discharge, ENT: Negative for injury, pain, and discharge, Neck: Negative for injury, pain, and swelling, Cardiovascular: Negative for chest pain, palpitations, and edema, Respiratory: Negative for shortness of breath, cough, wheezing, and pleuritic chest pain, Back: Negative for injury and pain, : Negative for injury, bleeding, discharge, and swelling, MS/Extremity: Negative for injury and deformity, Skin: Negative for injury, rash, and discoloration, Neuro: Negative for headache, weakness, numbness, tingling, and seizure, Psych: Negative for depression, anxiety, suicide ideation, homicidal ideation, and hallucinations, Allergy/Immunology: Negative for hives, rash, and allergies, Endocrine: Negative for neck swelling, polydipsia, polyuria, polyphagia, and marked weight changes, Hematologic/Lymphatic: Negative for swollen nodes, abnormal bleeding, and unusual bruising. 09:34 Abdomen/GI: Positive for abdominal pain, nausea and vomiting, diarrhea. Exam: 09:34 Constitutional: This is a well developed, well nourished patient who is awake, alert, derrick and in no acute distress. Head/Face: Normocephalic, atraumatic. Eyes: Pupils equal round and reactive to light, extra-ocular motions intact. Lids and lashes normal. Conjunctiva and sclera are non-icteric and not injected. Cornea within normal limits. Periorbital areas with no swelling, redness, or edema. ENT: Nares patent. No nasal discharge, no septal abnormalities noted. Tympanic membranes are normal and external auditory canals are clear. Oropharynx with no redness, swelling, or masses, exudates, or evidence of obstruction, uvula midline. Mucous membranes moist. Neck: Trachea midline, no thyromegaly or masses palpated, and no cervical lymphadenopathy. Supple, full range of motion without nuchal rigidity, or vertebral point tenderness. No Meningismus. Chest/axilla: Normal chest wall appearance and motion. Nontender with no deformity. No lesions are appreciated. Cardiovascular: Regular rate and rhythm with a normal S1 and S2. No gallops, murmurs, or rubs. Normal PMI, no JVD. No pulse deficits. Respiratory: Lungs have equal breath sounds bilaterally, clear to auscultation and percussion. No rales, rhonchi or wheezes noted. No increased work of breathing, no retractions or nasal flaring. Back: No spinal tenderness. No costovertebral tenderness. Full range of motion. Male : Normal genitalia with no discharge or lesions. Skin: Warm, dry with normal turgor. Normal color with no rashes, no lesions, and no evidence of cellulitis. MS/ Extremity: Pulses equal, no cyanosis. Neurovascular intact. Full, normal range of motion. Neuro: Awake and alert, GCS 15, oriented to person, place, time, and situation. Cranial nerves II-XII grossly intact. Motor strength 5/5 in all extremities. Sensory grossly intact. Cerebellar exam normal. Normal gait. Psych: Awake, alert, with orientation to person, place and time. Behavior, mood, and affect are within normal limits. 09:34 Abdomen/GI: Inspection: abdomen appears normal, Bowel sounds: normal, Palpation: mild abdominal tenderness, in all quadrants, Liver: no appreciated palpable abnormalities, Hernia: not appreciated. 09:37 ECG was reviewed by the Attending Physician. [facility] Vital Signs: 08:35 Weight 90.72 kg; Height 5 ft. 7 in. (170.18 cm); Pain 0/10; sv 08:38 BP 180 / 119; Pulse 86; Resp 23 S; Temp 98.1(O); Pulse Ox 100% on R/A; Weight 90.72 kg jl7 (R); Height 5 ft. 7 in. (170.18 cm); 09:06 BP 186 / 112; Pulse 87; Resp 16; Pulse Ox 100% ; jl7 10:50 BP 168 / 115; Pulse 89; Resp 15; Pulse Ox 100% ; jl7 12:46 BP 165 / 116; Pulse 71; Pulse Ox 99% on R/A; ap3 12:59 BP 169 / 110; ap3 13:18 BP 153 / 97; ap3 08:38 Body Mass Index 31.32 (90.72 kg, 170.18 cm) jl7 MDM: 08:35 Patient medically screened. [facility] 09:35 Differential diagnosis: Nonspecific abd pain, gastritis, cholecystitis, pancreatitis, derrick diverticulitis, viral gastroenteritis, gastroenteritis, bowel obstruction, cholecystitis, Cholelithiasis, diverticulitis, gastritis. Data reviewed: vital signs, nurses notes, lab test result(s), EKG, radiologic studies, CT scan, plain films. Data interpreted: net washer: rate is 87 beats/min, rhythm is regular. Test interpretation: by ED physician or midlevel provider: ECG, plain radiologic studies. Counseling: I had a detailed discussion with the patient and/or guardian regarding: the historical points, exam findings, and any diagnostic results supporting the discharge/admit diagnosis, lab results, radiology results. 03/11 08:45 Order name: COVID-19 : Document "Date of Symptom Onset" if Symptomatic. [facility] 03/11 08:50 Order name: Basic Metabolic Panel; Complete Time: 09:31 [facility] 03/11 08:50 Order name: CBC with Diff; Complete Time: 10:42 [facility] 03/11 08:50 Order name: Hepatic Function; Complete Time: 09:31 [facility] 03/11 08:50 Order name: Lipase; Complete Time: 09:31 [facility] 03/11 09:31 Order name: Troponin (emerg Dept Use Only); Complete Time: 10:42 [facility] 03/11 09:31 Order name: Chest Single View XRAY; Complete Time: 12:25 [facility] 03/11 09:50 Order name: CBC Smear Scan; Complete Time: 10:42 [facility] 03/11 09:59 Order name: COVID-19/FLU A+B; Complete Time: 10:42 [facility] 03/11 10:43 Order name: US Abdomen Limited [facility] 03/11 10:44 Order name: CT Abd/Pelvis - IV Contrast Only; Complete Time: 12:25 [facility] 03/11 08:50 Order name: IV Saline Lock; Complete Time: 09:03 [facility] 03/11 08:50 Order name: Labs collected and sent; Complete Time: 09:03 [facility] 03/11 09:31 Order name: EKG; Complete Time: 09:32 [facility] 03/11 09:31 Order name: EKG - Nurse/Tech; Complete Time: 10:43 derrick EC:37 Rate is 99 beats/min. Rhythm is regular. QRS [place] is Normal. [place] interval is normal. QRS derrick interval is normal. QT interval is normal. No Q waves. T waves are Normal. No ST changes noted. Clinical impression: Normal ECG and No evidence of ischemia. Interpreted by me. Reviewed by me. Administered Medications: 08:50 Drug: NS 0.9% 1000 ml Route: IV; Rate: 1 bolus; Site: left wrist; jl7 10:00 Follow up: Response: No adverse reaction; IV Status: Completed infusion; IV Intake: jl7 1000ml 08:50 Drug: Pepcid (famotidine) 20 mg Route: IVP; Site: left wrist; jl7 10:46 Follow up: Response: No adverse reaction jl7 08:55 Drug: Phenergan (promethazine) 12.5 mg Route: IVP; Site: left wrist; jl7 09:15 Follow up: Response: No adverse reaction; Nausea is decreased jl7 10:30 Drug: Phenergan (promethazine) 12.5 mg Route: IVP; Site: left wrist; jl7 13:01 Follow up: Response: No adverse reaction; Nausea is decreased ap3 11:36 Drug: NS 0.9% 1000 ml Route: IV; Rate: 125 ml/hr; Site: right wrist; ap3 13:19 Follow up: IV Status: IV converted to saline lock; IV Intake: 200ml ap3 12:41 Drug: Norvasc (amlodipine) 10 mg Route: PO; ap3 13:01 Follow up: Response: No adverse reaction ap3 Disposition: 03/11/21 12:31 Discharged to Home. Impression: Vomiting, Essential (primary) hypertension, Functional dyspepsia, Diarrhea, unspecified. - Condition is Stable. - Discharge Instructions: Diarrhea, Adult, Hypertension, Nausea and Vomiting, Adult, Nausea and Vomiting, Adult, [id number], Hypertension, Jozg-dy-Hmop, Diarrhea, Adult, Ldfq-lo-Ezqx, How to Take Your Blood Pressure, Jlnd-ss-Auyi, Managing Your Hypertension. - Prescriptions for Norvasc 5 mg Oral Tablet - take 1 tablet by ORAL route once daily; 20 tablet. Zofran 4 mg Oral Tablet - take 1 tablet by ORAL route every 12 hours As needed; 20 tablet. - Medication Reconciliation Form, Thank You Letter, Antibiotic Education, Prescription Opioid Use form. - Follow up: Nabor Cruz MD; When: 2 - 3 days; Reason: Recheck today's complaints, Continuance of care, Re-evaluation by your physician. Follow up: Medardo Gutierrez MD; When: 2 - 3 days; Reason: Recheck today's complaints, Continuance of care, Re-evaluation by your physician. - Problem is new. - Symptoms have improved. Signatures: Dispatcher [employer] EDMS Vanessa Gallegos, Lito Eller RN, MD MD cha Leal, Jahala, RN RN jl7 Shanel Adame RN RN ap3 Corrections: (The following items were deleted from the chart) 09:14 08:45 CORONAVIRUS ordered. EDMS EDMS 09:15 08:48 Influenza Screen (A \\T\\ B)+BA.LAB.BRZ ordered. [facility] 12:32 12:31 03/11/2021 12:31 Discharged to Home. Impression: Vomiting; Essential (primary) derrick hypertension; Functional dyspepsia. Condition is Stable. Forms are Medication Reconciliation Form, Thank You Letter, Antibiotic Education, Prescription Opioid Use. Follow up: Nabor Cruz; When: 2 - 3 days; Reason: Recheck today's complaints, Continuance of care, Re-evaluation by your physician. Follow up: Medardo Gutierrez; When: 2 - 3 days; Reason: Recheck today's complaints, Continuance of care, Re-evaluation by your physician. Problem is new. Symptoms have improved. [facility] 13:20 12:32 03/11/2021 12:31 Discharged to Home. Impression: Vomiting; Essential (primary) ap3 hypertension; Functional dyspepsia; Diarrhea, unspecified. Condition is Stable. Discharge Instructions: Hypertension, Nausea and Vomiting, Adult, Nausea and Vomiting, Adult, Ceti-vc-Dgpn, Hypertension, Qxom-jy-Hlmk, How to Take Your Blood Pressure, Toky-wi-Cwkg, Managing Your Hypertension. Prescriptions for Norvasc 5 mg Oral Tablet - take 1 tablet by ORAL route once daily; 20 tablet, Zofran 4 mg Oral Tablet - take 1 tablet by ORAL route every 12 hours As needed; 20 tablet. and Forms are Medication Reconciliation Form, Thank You Letter, Antibiotic Education, Prescription Opioid Use. Follow up: Nabor Cruz; When: 2 - 3 days; Reason: Recheck today's complaints, Continuance of care, Re-evaluation by your physician. Follow up: Medardo Gutierrez; When: 2 - 3 days; Reason: Recheck today's complaints, Continuance of care, Re-evaluation by your physician. Problem is new. Symptoms have improved. derrick
--- NOTE | 2021-03-11 12:32 | ER ---
Nurse's Notes [facility] Name: Triston Swanson Age: 56 yrs Sex: Male : 1965 Arrival Date: 03/11/2021 Time: 08:28 Bed 17 Private MD: Nabor Cruz T Diagnosis: Vomiting;Essential (primary) hypertension;Functional dyspepsia;Diarrhea, unspecified Presentation: 03/11 08:35 Chief complaint: Patient states: subjective fever, n/v/d x 1 day. Coronavirus screen: sv Client denies travel out of the [place] in the last 14 days. Client presents with at least one sign or symptom that may indicate coronavirus-19. Standard/surgical mask placed on the client. Provider contacted for isolation considerations. Ebola Screen: No symptoms or risks identified at this time. Risk Assessment: Do you want to hurt yourself or someone else? Patient reports no desire to harm self or others. Onset of symptoms was March 10, 2021. 08:35 Method Of Arrival: Ambulatory sv 08:35 Acuity: SONA 3 sv 10:47 Initial Sepsis Screen: Does the patient meet any 2 criteria? No. Patient's initial jl7 sepsis screen is negative. Does the patient have a suspected source of infection? No. Patient's initial sepsis screen is negative. Historical: - Allergies: 08:36 No Known Allergies; sv - Home Meds: 10:50 losartan 50 mg oral tab 1 tab once daily [Active]; alprazolam 0.5 mg Oral tab [Active]; jl7 meloxicam 15 mg oral tab 1 tab [Active]; escitalopram oxalate 20 mg oral tab [Active]; carvedilol 25 mg oral tab [Active]; allopurinol 300 mg Oral tab [Active]; - PMHx: 08:36 Arthritis; Depression; Gout; Hypertension; sv - PSHx: 08:36 knee and elbow surgery; sv - Immunization history:: Client reports having NOT received the Covid vaccine. Flu vaccine is up to date. - Social history:: Smoking status: Patient denies any tobacco usage or history of. Screenin:06 Abuse screen: Denies threats or abuse. Denies injuries from another. Nutritional jl7 screening: No deficits noted. Tuberculosis screening: No symptoms or risk factors identified. Fall Risk IV access (20 points). Total Velasquez Fall Scale indicates No Risk (0-24 pts). Assessment: 08:50 General: Appears in no apparent distress. uncomfortable, ill, Behavior is calm, jl7 cooperative, appropriate for age. Pain: Complains of pain in abdomen diffusely Quality of pain is described as aching, squeezing, Pain began x 6 hours Is continuous. Neuro: Level of Consciousness is awake, alert, obeys commands, Oriented to person, place, time, situation. Cardiovascular: Patient's skin is warm and dry. Respiratory: Airway is patent Respiratory effort is even, unlabored, Respiratory pattern is symmetrical, tachypnea. GI: Abdomen is round non-distended, Pt is actively vomiting dry-heaving Reports diarrhea, nausea, vomiting. Derm: Skin is pink, warm \\T\\ dry. 12:47 Reassessment: Patient and/or family updated on plan of care and expected duration. Pain ap3 level reassessed. Patient is alert, oriented x 3, equal unlabored respirations, skin warm/dry/pink. awaiting time for follow up BP after medication administration prior to discharging patient. . Vital Signs: 08:35 Weight 90.72 kg; Height 5 ft. 7 in. (170.18 cm); Pain 0/10; sv 08:38 BP 180 / 119; Pulse 86; Resp 23 S; Temp 98.1(O); Pulse Ox 100% on R/A; Weight 90.72 kg jl7 (R); Height 5 ft. 7 in. (170.18 cm); 09:06 BP 186 / 112; Pulse 87; Resp 16; Pulse Ox 100% ; jl7 10:50 BP 168 / 115; Pulse 89; Resp 15; Pulse Ox 100% ; jl7 12:46 BP 165 / 116; Pulse 71; Pulse Ox 99% on R/A; ap3 12:59 BP 169 / 110; ap3 13:18 BP 153 / 97; ap3 08:38 Body Mass Index 31.32 (90.72 kg, 170.18 cm) jl7 ED Course: 08:28 Patient arrived in ED. mr 08:28 Nabor Cruz MD is Private Physician. mr 08:35 Lito Marie MD is Attending Physician. derrick 08:36 Triage completed. sv 08:37 Arm band placed on. sv 08:38 Manning, Jahala, RN is Primary Nurse. jl7 08:50 Initial lab(s) drawn, by me, sent to lab. Inserted saline lock: 20 gauge in left wrist, jl7 using aseptic technique. Blood collected. 09:06 Patient has correct armband on for positive identification. Bed in low position. Call jl7 light in reach. Side rails up X 1. Pulse ox on. NIBP on. 09:17 COVID-19 : Document "Date of Symptom Onset" if Symptomatic. Sent. kj1 10:03 Chest Single View XRAY In Process Unspecified. EDMS 11:33 CT Abd/Pelvis - IV Contrast Only In Process Unspecified. EDMS 11:56 US Abdomen Limited In Process Unspecified. EDMS 12:29 Nabor Cruz MD is Referral Physician. derrick 12:30 Medardo Gutierrez MD is Referral Physician. derrick 13:19 IV discontinued, intact, bleeding controlled, No redness/swelling at site. Pressure ap3 dressing applied. 13:19 No provider procedures requiring assistance completed. ap3 Administered Medications: 08:50 Drug: NS 0.9% 1000 ml Route: IV; Rate: 1 bolus; Site: left wrist; jl7 10:00 Follow up: Response: No adverse reaction; IV Status: Completed infusion; IV Intake: jl7 1000ml 08:50 Drug: Pepcid (famotidine) 20 mg Route: IVP; Site: left wrist; jl7 10:46 Follow up: Response: No adverse reaction jl7 08:55 Drug: Phenergan (promethazine) 12.5 mg Route: IVP; Site: left wrist; jl7 09:15 Follow up: Response: No adverse reaction; Nausea is decreased jl7 10:30 Drug: Phenergan (promethazine) 12.5 mg Route: IVP; Site: left wrist; jl7 13:01 Follow up: Response: No adverse reaction; Nausea is decreased ap3 11:36 Drug: NS 0.9% 1000 ml Route: IV; Rate: 125 ml/hr; Site: right wrist; ap3 13:19 Follow up: IV Status: IV converted to saline lock; IV Intake: 200ml ap3 12:41 Drug: Norvasc (amlodipine) 10 mg Route: PO; ap3 13:01 Follow up: Response: No adverse reaction ap3 Intake: 10:00 IV: 1000ml; Total: 1000ml. jl7 13:19 IV: 200ml; Total: 1200ml. ap3 Outcome: 12:31 Discharge ordered by . derrick 13:19 Discharged to home ambulatory. ap3 13:19 Condition: good 13:19 Discharge instructions given to patient, Instructed on discharge instructions, follow up and referral plans. medication usage, Demonstrated understanding of instructions, follow-up care, medications, Prescriptions given X 2. 13:20 Patient left the ED. ap3 Signatures: Dispatcher [employer] EDVanessa Blanc, RN Lito Eller MD MD cha Rivera, Mary mr Aram Manning, RN RN jl7 Shanel Adame RN RN ap3 Rossy Meyer1
--- NOTE | 2021-03-11 12:33 | RAD REPORT ---
EXAM DESCRIPTION: US - Abdomen Exam Limited - 03/11/2021 11:56 am CLINICAL HISTORY: ABD PAIN COMPARISON: Abdomen Pelvis W Contrast dated 08/22/2019 FINDINGS: No in the neck of the gallbladder a 5 millimeter nonshadowing echogenic focus is present. No mobile gallstones identified. No other gallbladder lumen abnormality seen. There is no wall thicke gilberto or pericholecystic fluid. No common duct stone or biliary tree dilatation identified. IMPRESSION: Normal-sized gallbladder shows 5 mm nonshadowing echogenic focus near the neck. This cou ld be a polyp or atypical stone presentation. No other gallbladder or biliary tree finding.
[2021-03-11] MEDS ORDERED: AMLODIPINE 10 MG TAB ONE (12:58)
[2021-03-11 13:37] VITALS: TEMP 98.2; O2SAT 99
[2021-03-11 13:57] VITALS: BP 153/97
== END 2021-03-11 13:20 | disposition home or self-care (01) ==
LOC: ER 08:25
DX: K30 Functional dyspepsia (principal); R19.7 Diarrhea, unspecified; I10 Essential (primary) hypertension; F32.9 Major depressive disorder, single episode, unspecified; Z20.822 Contact with and (suspected) exposure to COVID-19
CPT/HCPCS: 96361; 85025; 80048; 36415; 80076; 84484; 83690; 0240U; 74177; 71045; 76705; 96375; 96374; 99284; Q9967; J2550 ×2; J7030 ×2; 93005

== ENCOUNTER 2021-05-09 11:47 | Emergency (ER) | payer OTHER ==
--- OUTSIDE RECORDS SUMMARY | 2021-05-09 11:50 | XMS REPORT | Continuity of Care Document ---
:1965 Author Organization [facility] t Address [address] [place] [address] [address]. [address] [place] [address] Care Team Providers Name Role Phone Unavailable Unavailable Unavailable Problems This patient has no known problems. Allergies, Adverse Reactions, Alerts This patient has no known allergies or adverse reactions. Medications This patient has no known medications. Procedures This patient has no known procedures. Results This patient has no known results.
[2021-05-09 12:35] LABS: Absolute Lymphocytes (CBC) 0.3 K/uL (0.7-4.9); Basophils % 0.7 % (0-1.3); Hematocrit 37.5 % (39.6-49.0); Lymphocytes % 8.5 % (15.3-44.8); MPV 8.1 fL (7.6-11.3); RBC Red Blood Cell Count 3.81 M/uL (4.33-5.43)
[2021-05-09 12:36] LABS: Protime INR 1.15
[2021-05-09 13:04] LABS: Blood Morphology Comment NOT SEEN (NOT SEEN); Platelet Estimate ADEQ
[2021-05-09 13:20] LABS: ALT/SGPT 37 U/L (12-78); AST/SGOT 32 U/L (15-37); Albumin 3.2 g/dL (3.4-5.0); Alkaline Phosphatase 100 U/L (45-117); BUN Blood Urea Nitrogen 21 mg/dL (7-18); Bicarbonate 29 mmol/L (21-32); Bilirubin Direct 0.2 mg/dL (0-0.2); Bilirubin Total 0.4 mg/dL (0.2-1.0); Glucose Level 90 mg/dL (74-106); Potassium 4.4 mmol/L (3.5-5.1); Protein, Total 7.8 g/dL (6.4-8.2); Sodium Level 136 mmol/L (136-145)
--- NOTE | 2021-05-09 14:37 | ER ---
Nurse's Notes [facility] Name: Triston Swanson Age: 56 yrs Sex: Male : 1965 Arrival Date: 05/09/2021 Time: 11:55 Bed 5 Private MD: Diagnosis: Cocaine abuse Presentation: 05/09 11:55 Chief complaint: EMS states: Toned out by pt's mom reporting pt is altered, pt reports jl7 he's been doing coke for about 8 days and did the last bit this morning, reported he couldn't see or talk. Symptoms have resolved. Coronavirus screen: Client denies travel out of the [place] in the last 14 days. At this time, the client does not indicate any symptoms associated with coronavirus-19. Ebola Screen: No symptoms or risks identified at this time. Initial Sepsis Screen: Does the patient meet any 2 criteria? No. Patient's initial sepsis screen is negative. Does the patient have a suspected source of infection? No. Patient's initial sepsis screen is negative. Risk Assessment: Do you want to hurt yourself or someone else? Patient reports no desire to harm self or others. Onset of symptoms was May 09, 2021. Care prior to arrival: Glucose check: 116. 11:55 Method Of Arrival: EMS: [facility] 11:55 Acuity: SONA 3 jl7 Triage Assessment: 11:55 General: Appears in no apparent distress. uncomfortable, Behavior is calm, cooperative. jl7 Pain: Denies pain. EENT: No signs and/or symptoms were reported regarding the EENT system. Neuro: Level of Consciousness is awake, alert, obeys commands, Oriented to person, place, time, situation, Registered Nurse Obstetrics are equal bilaterally Moves all extremities. Full function Speech is normal. Cardiovascular: Patient's skin is warm and dry. Respiratory: Airway is patent Respiratory effort is even, unlabored, Respiratory pattern is regular, symmetrical. Derm: Skin is pink, warm \T\ dry. Historical: - Allergies: :58 No Known Drug Allergies; jl7 - PMHx: :58 Arthritis; Depression; Gout; Hypertension; jl7 - Immunization history:: Adult Immunizations unknown. - Social history:: Smoking status: Patient reports the use of cigarette tobacco products, Patient uses street drugs, cocaine, Patient uses alcohol, on a daily basis. Screenin:46 Abuse screen: Denies threats or abuse. Denies injuries from another. Nutritional jl7 screening: No deficits noted. Tuberculosis screening: No symptoms or risk factors identified. Fall Risk IV access (20 points). Total Velasquez Fall Scale indicates No Risk (0-24 pts). Assessment: 12:00 General: See triage assessment. jl7 13:00 Reassessment: Patient appears in no apparent distress at this time. No changes from jl7 previously documented assessment. Patient and/or family updated on plan of care and expected duration. Pain level reassessed. Patient is alert, oriented x 3, equal unlabored respirations, skin warm/dry/pink. 13:55 Reassessment: Patient appears in no apparent distress at this time. No changes from jl7 previously documented assessment. Patient and/or family updated on plan of care and expected duration. Pain level reassessed. Patient is alert, oriented x 3, equal unlabored respirations, skin warm/dry/pink. Vital Signs: 11:55 BP 164 / 111; Pulse 77; Resp 17; Temp 98.6; Pulse Ox 100% ; Pain 0/10; jl7 12:46 BP 168 / 108; Pulse 79; Resp 15; Pulse Ox 100% ; Pain 0/10; jl7 13:54 BP 175 / 104; Pulse 74; Resp 15; Pulse Ox 100% ; jl7 14:45 BP 153 / 101; Pulse 75; Resp 15; Pulse Ox 100% ; jl7 ED Course: 11:55 Patient arrived in ED. jl7 11:58 Triage completed. jl7 11:58 Arm band placed on right wrist. jl7 12:00 Patient has correct armband on for positive identification. Bed in low position. Call [facility] light in reach. Side rails up X 1. monitoring and evaluation advisor on. Pulse ox on. NIBP on. 12:01 Primo Moran MD is Attending Physician. tw4 12:20 Kelsey Peralta RN is Primary Nurse. tr6 12:20 Inserted saline lock: 18 gauge in right antecubital area, using aseptic technique. tr6 Blood collected. 12:20 Initial lab(s) drawn, by ED staff, sent to lab. jl7 14:49 IV discontinued, intact, bleeding controlled, No redness/swelling at site. Pressure tr6 dressing applied. 14:56 No provider procedures requiring assistance completed. jl7 Administered Medications: No medications were administered Outcome: 14:37 Discharge ordered by . mehnaz 14:56 Discharged to home ambulatory, with family. [email or web address] 14:56 Condition: stable 14:56 Discharge instructions given to patient, Instructed on discharge instructions, follow up and referral plans. Demonstrated understanding of instructions, follow-up care. 14:56 Patient left the ED. jl7 Signatures: Aram Manning RN RN jl7 Primo Moran MD MD tw4 Kelsey Peralta RN RN tr6
--- NOTE | 2021-05-09 14:37 | EDPHYS ---
Physician Documentation [facility] Name: Triston Swanson Age: 56 yrs Sex: Male : 1965 Arrival Date: 05/09/2021 Time: 11:55 Bed 5 Private MD: ED Physician Primo Moran HPI: 05/09 18:02 This 56 yrs old Male presents to ER via EMS with complaints of cocaine use tw4 altered mental status. 18:02 The patient presents with decreased mental status, decreased responsiveness. Onset: The tw4 symptoms/episode began/occurred today. Patient's baseline: Neuro: alert and fully oriented, Motor: no deficits, Ambulation: walks without assistance. The patient has not experienced similar symptoms in the past. Historical: - Allergies: :58 No Known Drug Allergies; jl7 - PMHx: :58 Arthritis; Depression; Gout; Hypertension; jl7 - Immunization history:: Adult Immunizations unknown. - Social history:: Smoking status: Patient reports the use of cigarette tobacco products, Patient uses street drugs, cocaine, Patient uses alcohol, on a daily basis. ROS: 18:02 Unable to obtain ROS due to altered mental status. tw4 Exam: 18:02 Constitutional: This is a well developed, well nourished patient who is awake, alert, tw4 and in no acute distress. Head/Face: Normocephalic, atraumatic. Chest/axilla: Normal chest wall appearance and motion. Nontender with no deformity. No lesions are appreciated. Cardiovascular: Regular rate and rhythm with a normal S1 and S2. No gallops, murmurs, or rubs. Normal PMI, no JVD. No pulse deficits. Respiratory: Lungs have equal breath sounds bilaterally, clear to auscultation and percussion. No rales, rhonchi or wheezes noted. No increased work of breathing, no retractions or nasal flaring. Abdomen/GI: Soft, non-tender, with normal bowel sounds. No distension or tympany. No guarding or rebound. No evidence of tenderness throughout. Skin: Warm, dry with normal turgor. Normal color with no rashes, no lesions, and no evidence of cellulitis. MS/ Extremity: Pulses equal, no cyanosis. Neurovascular intact. Full, normal range of motion. Neuro: Awake and alert, GCS 15, oriented to person, place, time, and situation. Cranial nerves II-XII grossly intact. Motor strength 5/5 in all extremities. Sensory grossly intact. Cerebellar exam normal. Normal gait. Vital Signs: 11:55 BP 164 / 111; Pulse 77; Resp 17; Temp 98.6; Pulse Ox 100% ; Pain 0/10; jl7 12:46 BP 168 / 108; Pulse 79; Resp 15; Pulse Ox 100% ; Pain 0/10; jl7 13:54 BP 175 / 104; Pulse 74; Resp 15; Pulse Ox 100% ; jl7 14:45 BP 153 / 101; Pulse 75; Resp 15; Pulse Ox 100% ; jl7 MDM: 14:37 Patient medically screened. 05/09 12:01 Order name: Acetaminophen 05/09 12:01 Order name: Basic Metabolic Panel 05/09 12:01 Order name: CBC with Diff; Complete Time: 14:31 05/09 12:01 Order name: ETOH Level; Complete Time: 14:31 05/09 12:01 Order name: Hepatic Function; Complete Time: 14:31 05/09 12:01 Order name: PT-INR; Complete Time: 14:31 05/09 12:01 Order name: Ptt, Activated; Complete Time: 14:31 05/09 12:01 Order name: Salicylate; Complete Time: 14:31 05/09 12:01 Order name: Urine Drug Screen 05/09 12:01 Order name: EKG; Complete Time: 12:02 05/09 12:01 Order name: Acetaminophen Level; Complete Time: 14:31 [facility] 05/09 12:01 Order name: Basic Metabolic Panel; Complete Time: 14:31 [facility] 05/09 13:04 Order name: Manual Differential; Complete Time: 14:31 [facility] 05/09 14:48 Order name: Urine Dipstick-Ancillary [facility] 05/09 12:01 Order name: EKG - Nurse/Tech; Complete Time: 12:44 05/09 12:01 Order name: IV Saline Lock; Complete Time: 12:20 05/09 12:01 Order name: Labs collected and sent; Complete Time: 12:20 05/09 12:01 Order name: Suicide Screening ([place]); Complete Time: 12:21 tw4 05/09 12:01 Order name: Urine Dipstick-Ancillary (obtain specimen); Complete Time: 14:48 tw4 EC:05 Rate is 73 beats/min. Rhythm is regular. QRS [place] is Normal. [place] interval is normal. QRS tw4 interval is normal. QT interval is normal. No Q waves. T waves are Normal. No ST changes noted. Clinical impression: NSR w/ Non-specific ST/T Changes. Interpreted by me. Reviewed by me. Administered Medications: No medications were administered Disposition Summary: 05/09/21 14:37 Discharge Ordered Location: Home tw4 Problem: new tw4 Symptoms: have improved tw4 Condition: Stable tw4 Diagnosis - Cocaine abuse tw4 Followup: tw4 - With: Private Physician - When: Upon discharge from the Emergency Department - Reason: Recheck today's complaints, Continuance of care, Re-evaluation by your physician Discharge Instructions: - Discharge Summary Sheet tw4 - Cocaine Use Disorder tw4 Forms: - Medication Reconciliation Form tw4 - Thank You Letter tw4 - Antibiotic Education tw4 - Prescription Opioid Use tw4 Signatures: Dispatcher [employer] Aram Sweeney, RN RN jl7 Primo Moran MD MD tw4
[2021-05-09 14:48] LABS: Urine Blood Negative (Negative); Urine Glucose Negative (Negative); Urine Protein Negative (Negative); Urine Specific Gravity 1.015 (1.005-1.030); Urine pH 6.5 (5.0-7.0)
[2021-05-09 15:00] LABS: Barbiturates NEGATIVE (NEGATIVE); Benzodiazepines POSITIVE (NEGATIVE); Cocaine POSITIVE (NEGATIVE); METHAMPHETAM NEGATIVE (NEGATIVE); Methadone NEGATIVE (NEGATIVE); Opiates NEGATIVE (NEGATIVE); Phencyclidine NEGATIVE (NEGATIVE); THC Cannibis POSITIVE (NEGATIVE)
[2021-05-09 15:14] VITALS: TEMP 98.6; O2SAT 100
[2021-05-09 15:21] VITALS: BP 153/101
--- NOTE | 2021-05-10 16:08 | EKG ---
Test Date: 2021-05-09 Test Time: 12:43:01 Sample Puller: ARABELLA MEASUREMENT RESULTS: Intervals: Rate: 73 MS: 176 QRSD: 108 QT: 430 QTc: 473 [place]: P: 33 MS: 176 QRS: -10 T: 35 INTERPRETIVE STATEMENTS: Normal sinus rhythm Incomplete right bundle branch block Borderline ECG Compared to ECG 03/11/2021 09:29:29 Incomplete right bundle-branch block now present Electronically Signed On 05-10-21 16:04:25 CDT by Medardo Gutierrez
== END 2021-05-09 14:56 | disposition home or self-care (01) ==
LOC: ER 11:47
DX: F14.10 Cocaine abuse, uncomplicated (principal); I10 Essential (primary) hypertension; F17.210 Nicotine dependence, cigarettes, uncomplicated
CPT/HCPCS: 36415; 80048; 80076; 80307; 80320; 80329; 81003; 85025; 85610; 85730; 93005; 99284

== ENCOUNTER 2024-11-25 22:58 | Inpatient (IN) | payer OTHER ==
[2024-11-26 00:10] LABS: Absolute Lymphocytes (CBC) 0.3 K/uL (0.7-4.9); Absolute Monocytes 0.5 K/uL (0.1-1.3); Absolute Neutrophil 2.9 K/uL (1.8-8.0); Basophils % 0.5 % (0-1.3); Hemoglobin 14.5 g/dL (13.6-17.9); Lymphocytes % 7.6 % (15.3-44.8); MCH 33.9 pg (27.0-35.0); MCHC 35.3 g/dL (32.0-36.0); MPV 7.3 fL (7.6-11.3); Monocytes % 12.6 % (3.3-12.3); Neutrophils % 78.3 % (41.7-73.7); Nucleated Red Blood Cells % 0.1 % (0-0); Platelets 117 thou/uL (152-406); RBC Red Blood Cell Count 4.28 M/uL (4.33-5.43); Red Cell Distribution Width 13.6 % (12.1-15.2)
[2024-11-26 00:22] LABS: Albumin 2.9 g/dL (3.4-5.0); Albumin/Globulin Ratio 0.6 (1.1-1.8); Anion Gap 13.5 mEq/L (5.0-15.0); Bilirubin Direct 0.3 mg/dL (0-0.2); Bilirubin Indirect, Calculated 0.5 mg/dL (0.2-0.8); Bilirubin Total 0.8 mg/dL (0.2-1.0); Globulin 4.7 g/dL (2.3-3.5); Magnesium 1.7 mg/dL (1.6-2.4); Potassium 3.5 mEq/L (3.5-5.1); Protein, Total 7.6 g/dL (6.4-8.2); Troponin High Sensitivity 25.3 pg/mL (<58.9)
[2024-11-26 00:23] LABS: PT Prothrombin Time 11.7 SECONDS (9.4-12.5); PTT, Activated Partial Thromb 29.6 SECONDS (24.3-36.9); Protime INR 1.12
[2024-11-26 00:28] LABS: Specific Gravity 1.008 (1.005-1.030); Sqamous Epithelial None Seen /HPF (None Seen); Urine Bacteria <20 /HPF (<20); Urine Bilirubin NEGATIVE (Negative); Urine Blood Trace (Negative); Urine Clarity Clear (Clear); Urine Color Light-Yellow (Yellow); Urine Culture Reflex Order NOT NEEDED; Urine Glucose NEGATIVE (Negative); Urine Ketones NEGATIVE (Negative); Urine Microscopic Reflex YN ORDER UMIC; Urine Nitrite NEGATIVE (Negative); Urine Protein 2+ (Negative); Urine RBC <5 /HPF (None Seen); Urine Urobilinogen Normal (Normal); Urine WBC <5 /HPF (<5)
[2024-11-26 00:34] LABS: Barbiturates NEGATIVE (NEGATIVE); Benzodiazepines NEGATIVE (NEGATIVE); Cocaine NEGATIVE (NEGATIVE); METHAMPHETAM NEGATIVE (NEGATIVE); Methadone NEGATIVE (NEGATIVE); Opiates NEGATIVE (NEGATIVE); Phencyclidine NEGATIVE (NEGATIVE); THC Cannibis NEGATIVE (NEGATIVE)
[2024-11-26 00:36] LABS: SARS-CoV-2 Antigen CONTROL BLUE LINE VIS/BG OK; SARS-CoV-2 Antigen Rapid Res Negative (Negative)
--- NOTE | 2024-11-26 00:59 | RAD REPORT ---
CLINICAL HISTORY: Confused. COMPARISON: CT Head 08/22/2019. TECHNIQUE: CT HEAD WITHOUT IV CONTRAST on 11/25/2024 11:35 PM [employer] This exam was performed according to our departmental dose-optimization program, which includes autom ated exposure control, adjustment of the mA and/or kV according to patient size and/or use of iterative reconstruction technique. FINDINGS: There is no acute hemorrhage, mass effect or midline shift. Lopez-white differentiation is preserved. There is no hydrocephalus. There is no significant volume loss for age. The calvarium is intact. Orbits and globes are unremarkable. The paranasal sinuses are clear. There i s fluid throughout the right mastoid air cells. IMPRESSION: No acute intracranial findings. Electronically signed by: Jarad Bautista MD 11/26/2024 12:55 AM [employer] Due to temporary technical issues with the PACS/Etece reporting system, reports are being carleen d by the in-house radiologist without review as a courtesy to ensure prompt reporting the interpreting radiologist is fully responsible for the content of the report. Transcribed Date/Time: 11/26/2024 12:58 AM
[2024-11-26] MEDS ORDERED: LABETALOL 20 MG/4ML SYRINGE IV ONE ×2 (01:11→02:09)
[2024-11-26] MEDS ORDERED: ONDANSETRON 4 MG/2 ML VIAL ONE ×3 (02:14→12:31)
--- NOTE | 2024-11-26 02:18 | ER ---
Nurse's Notes [facility] Name: Triston Swanson Age: 59 yrs Sex: Male : 1965 Arrival Date: 11/25/2024 Time: 22:58 Bed 27 [facility] MD: Diagnosis: Hypertensive urgency, altered mental status, hyponatremia, hypocalcemia, renal insufficiency Presentation: 11/25 23:15 Chief complaint: Patient states: no energy the last couple of days, dizzy, confused, vc1 and scared. Coronavirus screen: Client denies travel out of the [place] in the last 14 days. At this time, the client does not indicate any symptoms associated with coronavirus-19. Ebola Screen: Patient negative for fever greater than or equal to 101.5 degrees Fahrenheit, and additional compatible Ebola Virus Disease symptoms Patient denies exposure to infectious person. Patient denies travel to an Ebola-affected area in the 21 days before illness onset. No symptoms or risks identified at this time. Initial Sepsis Screen: Does the patient meet any 2 criteria? No. Patient's initial sepsis screen is negative. Does the patient have a suspected source of infection? No. Patient's initial sepsis screen is negative. Risk Assessment: Do you want to hurt yourself or someone else? Patient reports no desire to harm self or others. Onset of symptoms is unknown. 23:15 Method Of Arrival: Ambulatory vc1 23:15 Acuity: SONA 3 vc1 Triage Assessment: 23:17 General: Appears in no apparent distress. uncomfortable, obese, unkempt, Behavior is vc1 cooperative, anxious, flat. Pain: Denies pain. EENT: No deficits noted. No signs and/or symptoms were reported regarding the EENT system. Neuro: Level of Consciousness is awake, alert, obeys commands, Oriented to person, place, situation. Cardiovascular: Capillary refill < 3 seconds Patient's skin is warm and dry. Respiratory: Airway is patent Respiratory effort is even, unlabored, Respiratory pattern is regular, symmetrical. GI: No deficits noted. No signs and/or symptoms were reported involving the gastrointestinal system. : No deficits noted. No signs and/or symptoms were reported regarding the genitourinary system. Derm: Skin is intact, is healthy with good turgor, Skin is dry, Skin is normal, Skin temperature is warm. Musculoskeletal: Circulation, motion, and sensation intact. Range of motion: intact in all extremities. Historical: - Allergies: 23:16 No Known Allergies; vc1 - PMHx: 23:16 Arthritis; Depression; Gout; Hypertension; vc1 - PSHx: 23:16 None; vc1 - Immunization history:: Client reports receiving the 2nd dose of the Covid vaccine, Flu vaccine is not up to date. - Infectious Disease History:: Denies. - Social history:: Smoking status: Patient denies any tobacco usage or history of. Screenin:10 [facility] ED Fall Risk Assessment (Adult) History of falling in the last 3 months, br2 including since admission No falls in past 3 months (0 pts) Confusion or Disorientation Yes (5 pts) Intoxicated or Sedated No (0 pts) Impaired Gait Yes (1 pt) Mobility Assist Device Used No (0 pt) Altered Elimination Score/Fall Risk Level 0 - 2 = Low Risk Oriented to surroundings, Maintained a safe environment. 23:17 Abuse screen: Denies threats or abuse. Nutritional screening: No deficits noted. vc1 Tuberculosis screening: No symptoms or risk factors identified. Assessment: 23:10 Reassessment: Patient is alert, oriented x 3, equal unlabored respirations, skin br2 warm/dry/pink. General: Appears in no apparent distress. uncomfortable, obese, Behavior is cooperative, anxious. Neuro: Level of Consciousness is awake, alert, obeys commands, Oriented to person, place, time, situation, [employer] S[employer] are equal bilaterally Moves all extremities. Gait is steady, Speech is normal, Facial symmetry appears normal, Reports dizziness, INTERMITTENT CONFUSION. Respiratory: Airway is patent Respiratory effort is even, unlabored, Respiratory pattern is regular, symmetrical. GI: Reports nausea. 11/26 01:49 Reassessment: Patient appears in no apparent distress at this time. Patient and/or cp4 family updated on plan of care and expected duration. Pain level reassessed. Patient is alert, oriented x 3, equal unlabored respirations, skin warm/dry/pink. Vital Signs: 11/25 23:15 BP 199 / 110; Pulse 105; Resp 18; Temp 99.1; Pulse Ox 99% ; Weight 102.06 kg; Height 5 vc1 ft. 7 in. ; Pain 0/10; 11/26 00:07 BP 209 / 122; Pulse 115; Resp 20; Pulse Ox 100% ; br2 00:47 BP 202 / 131; Pulse 110; Resp 22; Pulse Ox 98% on R/A; br2 01:49 BP 186 / 125; Pulse 94; Resp 18; Pulse Ox 99% ; cp4 02:10 BP 193 / 127; Pulse 96; Resp 18; Pulse Ox 98% ; cp4 02:31 BP 175 / 114; Pulse 93; Resp 18; Pulse Ox 98% ; br2 11/25 23:15 Body Mass Index 35.24 (102.06 kg, 170.18 cm) vc1 11/25 23:15 Pain Scale: Adult vc1 ED Course: 11/25 23:00 Patient arrived in ED. gm2 23:02 Idalmis Elmore MD is Attending Physician. sp3 23:05 Missed attempt(s): 20 gauge in right antecubital area. br2 23:10 Patient has correct armband on for positive identification. Placed in gown. Bed in low br2 position. Call light in reach. Side rails up X 1. Provided Education on: PLAN OF CARE. 23:10 Inserted saline lock: 20 gauge in right antecubital area, using aseptic technique. br2 Blood collected. Flushed with 10 mL NS. 23:16 Triage completed. vc1 23:17 Arm band placed on right wrist. vc1 23:23 Hannah Mohamud, RN is Primary Nurse. br2 23:50 Chest Single View XRAY In Process Unspecified. EDMS 11/26 00:06 CT Head Brain wo Cont In Process Unspecified. EDMS 00:08 EKG done, by ED staff, reviewed by Idalmis Elmore MD. oe 02:17 Forest Shaver MD is Hospitalizing Provider. sp3 Administered Medications: 01:35 Drug: Labetalol IV 20 mg IV at calculated rate once over 2 mins Route: IV; Rate: cp4 calculated rate; Infused Over: 2 mins; Site: right antecubital; 02:18 Follow up: Response: No adverse reaction; Blood pressure is unchanged cp4 02:16 Drug: Labetalol IV 20 mg IV at calculated rate once over 2 mins Route: IV; Rate: br2 calculated rate; Infused Over: 2 mins; Site: right antecubital; 03:00 Follow up: Response: No adverse reaction; IV Intake: 3ml br2 02:26 Drug: Ondansetron IVP 4 mg IVP once; over 2 minutes Route: IVP; Site: right antecubital;br2 03:00 Follow up: Response: No adverse reaction br2 Medication: 11/25 23:17 VIS not applicable for this client. vc1 Intake: 11/26 03:00 IV: 3ml; Total: 3ml. br2 Outcome: 02:18 Decision to Hospitalize by Provider. sp3 18:11 Patient left the ED. ss Signatures: Dispatcher [employer] EDMS Lakisha Troy, RN RN ss Niko Gómez Setul, MD MD sp3 Cindy Trujillo RN RN vc1 Shannan Dove 4 Tracy Staley 2 Hannah Mohamud RN RN br2
--- NOTE | 2024-11-26 02:18 | EDPHYS ---
Physician Documentation [facility] Name: Triston Swanson Age: 59 yrs Sex: Male : 1965 Arrival Date: 11/25/2024 Time: 22:58 Bed 27 Private MD: ED Physician Idalmis Elmore HPI: 11/25 23:43 This 59 yrs old Male presents to ER via Ambulatory with complaints of General Weakness, sp3 Confused, Doesn't Feel Right. 23:43 59-year-old male with a history of hypertension, depression, arthritis presents to the 3 ED with chief complaint generalized weakness and feeling "confused". Patient states that he drove around a lot before he could figure out how to get to the hospital. He also states that everybody in his life is and he has nobody left. He denies any pain however he does state he is depressed. He denies any drug use as he has had in the past. ROS, history and physical limited secondary to patient self analysis of being able to remember things. He has no current physician and is on no medications. His medical problems are untreated currently.. Historical: - Allergies: 23:16 No Known Allergies; vc1 - PMHx: 23:16 Arthritis; Depression; Gout; Hypertension; vc1 - PSHx: 23:16 None; vc1 - Immunization history:: Client reports receiving the 2nd dose of the Covid vaccine, Flu vaccine is not up to date. - Infectious Disease History:: Denies. - Social history:: Smoking status: Patient denies any tobacco usage or history of. ROS: 23:48 Unable to obtain ROS due to altered mental status, sp3 Exam: 23:48 Constitutional: This is a well developed, well nourished patient who is awake, alert, sp3 and in no acute distress. Head/Face: Normocephalic, atraumatic. Eyes: Pupils equal round and reactive to light, extra-ocular motions intact. Lids and lashes normal. Conjunctiva and sclera are non-icteric and not injected. Cornea within normal limits. Periorbital areas with no swelling, redness, or edema. ENT: Nares patent. No nasal discharge, no septal abnormalities noted. External auditory canals are clear. Oropharynx with no redness, swelling, or masses, exudates, or evidence of obstruction, uvula midline. Mucous membranes moist. Neck: Trachea midline, no thyromegaly or masses palpated, and no cervical lymphadenopathy. Supple, full range of motion without nuchal rigidity, or vertebral point tenderness. No Meningismus. Chest/axilla: Normal chest wall appearance and motion. Nontender with no deformity. No lesions are appreciated. Cardiovascular: Regular rate and rhythm with a normal S1 and S2. No gallops, murmurs, or rubs. Normal PMI, no JVD. No pulse deficits. Respiratory: Lungs have equal breath sounds bilaterally, clear to auscultation and percussion. No rales, rhonchi or wheezes noted. No increased work of breathing, no retractions or nasal flaring. Abdomen/GI: Soft, non-tender, with normal bowel sounds. No distension or tympany. No guarding or rebound. No evidence of tenderness throughout. Back: No spinal tenderness. No costovertebral tenderness. Full range of motion. Skin: Warm, dry with normal turgor. Normal color with no rashes, no lesions, and no evidence of cellulitis. MS/ Extremity: Pulses equal, no cyanosis. Neurovascular intact. Full, normal range of motion. Neuro: Awake and alert, GCS 15, oriented to person, place, time, and situation. Cranial nerves II-XII grossly intact. Motor strength 5/5 in all extremities. Sensory grossly intact. Cerebellar exam normal. Normal gait. 23:48 Psych: Behavior/mood is pleasant, Affect is calm, Patient has no thoughts/intents to harm self or others. Patient with low affect and appears depressed. Denies SI, HI or psychosis. 11/26 00:04 ECG was reviewed by the Attending Physician. EKG demonstrates sinus tachycardia at 106 sp3 bpm with normal intervals, leftward axis, normal QRS nonspecific diffuse ST/T-segment's without evidence of acute ischemia. Vital Signs: 11/25 23:15 BP 199 / 110; Pulse 105; Resp 18; Temp 99.1; Pulse Ox 99% ; Weight 102.06 kg; Height 5 vc1 ft. 7 in. ; Pain 0/10; 11/26 00:07 BP 209 / 122; Pulse 115; Resp 20; Pulse Ox 100% ; br2 00:47 BP 202 / 131; Pulse 110; Resp 22; Pulse Ox 98% on R/A; br2 01:49 BP 186 / 125; Pulse 94; Resp 18; Pulse Ox 99% ; cp4 02:10 BP 193 / 127; Pulse 96; Resp 18; Pulse Ox 98% ; cp4 02:31 BP 175 / 114; Pulse 93; Resp 18; Pulse Ox 98% ; br2 11/25 23:15 Body Mass Index 35.24 (102.06 kg, 170.18 cm) vc1 11/25 23:15 Pain Scale: Adult vc1 MDM: 11/25 23:06 Medical Screening Exam initiated sp3 23:49 Data reviewed: vital signs, nurses notes, lab test result(s), EKG, radiologic studies. sp3 ED course: 59-year-old male with vague symptoms of generalized weakness and confusion. Patient is also hypertensive though likely from untreated hypertension. Differential diagnosis is broad and includes delirium, drug use, intracranial pathology including CVA hemorrhagic or ischemic, infection, electrolyte disturbance, dehydration, among others. Workup will be broad and include CT scan of the head, general labs, EKG, chest x-ray, swabs, UDS, UA, and general supportive care. Currently we will hold on treatment of abnormal blood pressure until workup is complete. Disposition pending workup and patient course with possible admission if indicated.. 11/26 02:17 ED course: We will admit patient for hypertensive urgency, renal insufficiency and sp3 altered mental status. UDS negative and CT scan demonstrates no abnormality.. 11/25 23:35 Order name: Basic Metabolic Panel; Complete Time: 01: 3 11/25 23:35 Order name: CBC with Diff; Complete Time: : 3 11/25 23:35 Order name: Hepatic Function; Complete Time: 01: 3 11/25 23:35 Order name: Magnesium; Complete Time: : 3 11/25 23:35 Order name: Protime (+inr); Complete Time: : 3 11/25 23:35 Order name: Ptt, Activated; Complete Time: : 3 11/25 23:35 Order name: Troponin High Sensitivity; Complete Time: : 3 11/25 23:35 Order name: UDS; Complete Time: 01: 3 11/25 23:35 Order name: Urinalysis w/ reflexes; Complete Time: : 3 11/25 23:35 Order name: Flu; Complete Time: 02:03 sp3 11/25 23:35 Order name: SARS RAPID; Complete Time: 01:01 sp3 11/26 02:42 Order name: Urinalysis w/ reflexes EDMS 11/26 02:42 Order name: CBC with Automated Diff EDMS 11/26 02:42 Order name: CBC with Automated Diff EDMS 11/26 02:42 Order name: Comprehensive Metabolic Panel EDMS 11/26 02:42 Order name: Comprehensive Metabolic Panel EDMS 11/26 02:42 Order name: Troponin High Sensitivity EDMS 11/26 02:42 Order name: Troponin High Sensitivity EDMS 11/26 02:42 Order name: Troponin High Sensitivity EDMS 11/26 02:42 Order name: Troponin High Sensitivity EDMS 11/25 23:35 Order name: CT Head Brain wo Cont sp3 11/25 23:35 Order name: Chest Single View XRAY sp3 11/25 23:35 Order name: Cardiac monitoring; Complete Time: 01:18 sp3 11/25 23:35 Order name: EKG - Nurse/Tech; Complete Time: 01:18 sp3 11/25 23:35 Order name: IV Saline Lock; Complete Time: 01:18 sp3 11/25 23:35 Order name: Labs collected and sent; Complete Time: 01:18 sp3 11/25 23:35 Order name: NPO; Complete Time: 01:18 sp3 11/25 23:35 Order name: O2 Per Protocol; Complete Time: 01:18 sp3 11/25 23:35 Order name: O2 Sat Monitoring; Complete Time: 01:18 sp3 11/25 23:35 Order name: Orthostatics; Complete Time: :18 Administered Medications: 01:35 Drug: Labetalol IV 20 mg IV at calculated rate once over 2 mins Route: IV; Rate: cp4 calculated rate; Infused Over: 2 mins; Site: right antecubital; 02:18 Follow up: Response: No adverse reaction; Blood pressure is unchanged cp4 02:16 Drug: Labetalol IV 20 mg IV at calculated rate once over 2 mins Route: IV; Rate: br2 calculated rate; Infused Over: 2 mins; Site: right antecubital; 03:00 Follow up: Response: No adverse reaction; IV Intake: 3ml br2 02:26 Drug: Ondansetron IVP 4 mg IVP once; over 2 minutes Route: IVP; Site: right antecubital;br2 03:00 Follow up: Response: No adverse reaction br2 Disposition Summary: 11/26/24 02:18 Hospitalization Ordered Notes: Hospitalization Status: Observation sp3 Provider: Forest Shaver spUzma Condition: Stable sp3 Problem: an acute exacerbation sp3 Symptoms: have worsened sp3 Bed/Room Type: Standard sp3 Location: Telemetry/MedSurg (observation)(11/26/24 16:43) bd Room Assignment: 219(11/26/24 16:43) bd Diagnosis - Hypertensive urgency, altered mental status, hyponatremia, hypocalcemia, renal sp3 insufficiency Forms: - Medication Reconciliation Form sp3 - SBAR form sp3 - Leadership Thank You Letter sp3 Signatures: Dispatcher [employer] EDMS Rebeka Mcknight Setul, MD MD sp3 Cindy Trujillo RN RN 1 Shannan Dove cp4 Hannah Mohamud RN RN br2 Corrections: (The following items were deleted from the chart) 11/25 23:35 23:35 BASIC METABOLIC PANEL+C.LAB.BRZ ordered. EDMS EDMS 23:35 23:35 CBC+H.LAB.BRZ ordered. EDMS EDMS 23:35 23:35 HEPATIC FUNCTION+C.LAB.BRZ ordered. EDMS EDMS 23:35 23:35 MAGNESIUM+C.LAB.BRZ ordered. EDMS EDMS 23:35 23:35 PROTIME (+INR)+COAG.LAB.BRZ ordered. EDMS EDMS 23:35 23:35 PTT, ACTIVATED+COAG.LAB.BRZ ordered. EDMS EDMS 23:35 23:35 Troponin High Sensitivity+C.LAB.BRZ ordered. EDMS EDMS 23:35 23:35 URINE DRUG SCREEN+UC.LAB.BRZ ordered. EDMS EDMS 23:35 23:35 Urinalysis+U.LAB.BRZ ordered. EDMS EDMS 23:35 23:35 Influenza Screen (A \\T\\ B)+BA.LAB.BRZ ordered. EDMS EDMS 23:35 23:35 SARS-COV-2 Antigen Rapid+I.LAB.BRZ ordered. EDMS EDMS 11/26 03:01 02:18 Telemetry/MedSurg (observation) sp3 vc1 03:01 02:18 sp3 vc1 16:43 03:01 [facility] ER HOLD vc1 bd 16:43 03:01 ERHOLD- vc1 bd
--- NOTE | 2024-11-26 02:43 | P.HP ---
Certification for Inpatient Patient admitted to: Inpatient With expected LOS: >2 Midnights Practitioner: I am a practitioner with admitting privileges, knowledge of patient current condition, hospital course, and medical plan of care. Services: Services provided to patient in accordance with Admission requirements found in Title 42 Section 412.3 of the Code of Federal Regulations Patient History Date of Service: 11/26/24 Reason for admission: Elevated BP History of Present Illness: 59 yrs old Male with past medical history of hypertension, medication noncompliance, arthritis, depression, gout who was brought to ER with generalized weakness and confusion and fatigue . Patient states that he drove around a lot before he could figure out how to get to the hospital. He also states that everybody in his life is and he has nobody left. He denies any pain however he does state he is depressed. He denies any drug use .He has no current physician and is on no medications. Patient was assessed in the ER and was found to have hypertensive emergency and was admitted for further management. Allergies No Known Drug Allergies Allergy (Verified 08/23/19 01:04) Unknown Home medications list reviewed: Yes Home Medications: allopurinoL [Zyloprim*] 300 mg PO DAILY 01/03/19 Meloxicam [Mobic*] 7.5 mg PO DAILY 02/27/19 Escitalopram [Lexapro*] 20 mg PO DAILY 08/23/19 carvediloL [Coreg*] 25 mg PO BID #60 tab 08/23/19 clonazePAM [Klonopin*] 0.5 mg PO TID #90 tab 08/23/19 Losartan Potassium [Cozaar*] 50 mg PO BID #60 tablet 08/24/19 - Past Medical/Surgical History Diabetic: No Past Medical History: Reviewed- Non-Contributory -: Hypertension -: Rheumatoid arthritis -: Gout -: Obesity -: Depression Past Surgical History: Reviewed- Non-Contributory -: Left arm surgery -: Left elbow and knee excisional biopsies Psychosocial/ Personal History: He is single, has 1 child that is passed on due to an MVA. He is disabled currently. He was an offshoreman. - Family History Mother -: Heart disease Father -: Hypertension, Lung disease - Social History Smoking Status: Never smoker Alcohol use: Yes CD- Drugs: No Caffeine use: Yes Review of Systems 10-point ROS is otherwise unremarkable Physical Examination - Vital Signs Temperature: 98.2 F Blood Pressure: 184/114 Pulse: 88 Respirations: 18 Pulse Ox (%): 94 - Physical Exam General: Alert, In no apparent distress HEENT: Atraumatic, Normocephalic Neck: Supple Respiratory: Clear to auscultation bilaterally, Normal air movement Cardiovascular: Regular rate/rhythm, Normal S1 S2 Capillary refill: <2 Seconds Gastrointestinal: Non-distended, W/out hepatosplenomegaly Musculoskeletal: No clubbing, No swelling Integumentary: No rashes, No breakdown Neurological: Normal gait, Normal speech, Normal strength at 5/5 x4 extr, Cranial nerves 3-12 intact Lymphatics: No axilla or inguinal lymphadenopathy - Studies Laboratory Data (last 24 hrs) 11/25/24 11/25/24 11/25/24 23:20 23:20 23:20 WBC 3.70 L Hgb 14.5 Hct 41.0 Plt Count 117 L PT 11.7 INR 1.12 APTT 29.6 Sodium 130 L Potassium 3.5 BUN 14 Creatinine 1.55 H Glucose 113 H Magnesium 1.7 Total Bilirubin 0.8 AST 67 H ALT 74 H Alkaline Phosphatase 77 Microbiology Data (last 24 hrs): 11/25/24 23:53 Nasopharnyx Influenza Type A Antigen Screen - Final 11/25/24 23:53 Nasopharnyx Influenza Type B Antigen Screen - Final Assessment and Plan - Plan Hypertensive emergency Monitor under telemetry Hydralazine as needed Continue home medications and titrate as needed Hyponatremia Hypochloremia IV hydration Monitor electrolytes and replace accordingly Hyperlipidemia Continue statin Acute kidney injury on CKD stage II Monitor renal parameters Electrolytes monitor and replace accordingly Depression/anxiety Continue home medications and titrate as needed Elevated LFTs Thrombocytopenia Leukopenia Monitor LFTs in a.m. Monitor CBC in a.m. GI/DVT prophylaxis Advanced directive full code Discharge Plan: Home Plan to discharge in: 48 Hours - Advance Directives Does patient have a Living Will: No Does patient have a Durable POA for Healthcare: No - Code Status/Comfort Care Code Status: Full Code Time Spent Managing Pts Care (In Minutes): 48
[2024-11-26 03:57] VITALS: BMI 35.2
--- NOTE | 2024-11-26 06:25 | RAD REPORT ---
EXAM DESCRIPTION: Chest Single View CLINICAL HISTORY: AMS COMPARISON: None TECHNIQUE: Single AP view of the chest. FINDINGS: Lung volumes adequate. Cardiac silhouette is normal in size. No pneumothorax. No large pleural effusion. No focal consolidation. No acute bony finding. IMPRESSION: No evidence of acute cardiopulmonary disease. Electronically signed by: Khalif Tam MD 11/26/2024 12:38 AM [facility] Z9 Due to temporary technical issues with the PACS/MapSense reporting system, reports are being carleen d by the in-house radiologist without review as a courtesy to ensure prompt reporting the interpreting radiologist is fully responsible for the content of the report. Transcribed Date/Time: 11/26/2024 6:24 AM
[2024-11-26] MEDS ORDERED: ACETAMINOPHEN 325 MG TABLET ONE (06:40)
[2024-11-26] MEDS: ACETAMINOPHEN 325 MG TABLET PO PRN (06:44)
[2024-11-26] MEDS: ONDANSETRON 4 MG/2 ML VIAL IV PRN (06:46)
[2024-11-26] MEDS ORDERED: FLU (Fluarix Triv) TS24-25(6MOS UP)/PF 45 MCG/0.5 ML Syringe IM ONE (07:15)
[2024-11-26] MEDS ORDERED: PNEUMOCOCCAL VACCINE 0.5 ML IMVAC ONE (08:00)
[2024-11-26] MEDS ORDERED: LOSARTAN POTASSIUM 50 MG TABLET ONE (08:56)
[2024-11-26] MEDS ORDERED: clonazePAM 0.5 MG TAB ONE ×2 (08:57→15:13)
[2024-11-26] MEDS ORDERED: ENOXAPARIN 40 MG/0.4 ML SQ ONE (08:57)
[2024-11-26] MEDS: allopurinoL 300 MG TAB PO SCH (09:00)
[2024-11-26] MEDS: ESCITALOPRAM 20 MG TAB PO SCH (09:00)
[2024-11-26] MEDS: ENOXAPARIN 40 MG/0.4 ML SQ SCH (09:00)
[2024-11-26] MEDS: carvediloL 25 MG TAB PO SCH (09:00)
[2024-11-26] MEDS: LOSARTAN POTASSIUM 50 MG TABLET PO SCH (09:00)
[2024-11-26] MEDS: clonazePAM 0.5 MG TAB PO SCH (09:00)
[2024-11-26] MEDS ORDERED: HYDRALAZINE HCL 20 MG/ML VIAL ONE ×2 (12:31→16:44)
[2024-11-26] MEDS: HYDRALAZINE HCL 20 MG/ML VIAL IV PRN (12:45)
[2024-11-26] MEDS: DIAZEPAM 10 MG/2 ML INJ SYRINGE IV ONE (16:35)
[2024-11-26] MEDS: HYDRALAZINE HCL 20 MG/ML VIAL IV ONE (16:36)
[2024-11-26 22:43] VITALS: O2SAT 98
--- OUTSIDE RECORDS SUMMARY | 2024-11-27 02:07 | XMS REPORT | Continuity of Care Document ---
Author Name Unknown Address [address] [place] [address] [facility] thconnect Address [address] [place] [address] Care Team Providers Care Clamp Jig Assembler Name Role Phone PCP, PATIENT DOES NOT HAVE A Primary Care Physic norma Unavailable COLLIN MINA Attending Clinician Unavailable COLLIN MINA Admitting Clinician Unavailable Payers Payer Name Policy Type Policy Number Effective Date Expirati on Date Source MEDICARE PART A \T\ [id number] 2017 00:00:00 Allergies, Adverse Reactions, Alerts Allergy Name Allergy Type Status Severity Reaction(s) Onset Date Inactive Date Treating Clinician Comments Source NO KNOWN ALLERGIE S Drug Class Active [facility] Encounters Start Date/Time End Date/Time Encounter Type Admission Type Attending Clinicians Care Facility Care Department Encounter ID Source 2019-10-24 17:41:02 2019-10-26 14:11:00 Outpatient X COLLIN MINA [facility] [id number] [facility]
[2024-11-27 04:42] LABS: Absolute Lymphocytes (CBC) 0.3 K/uL (0.7-4.9); Absolute Monocytes 0.6 K/uL (0.1-1.3); Absolute Neutrophil 3.5 K/uL (1.8-8.0); Basophils % 0.3 % (0-1.3); Eosinophils % 0.5 % (0-4.4); Hematocrit 39.7 % (39.6-49.0); Hemoglobin 13.7 g/dL (13.6-17.9); Lymphocytes % 6.5 % (15.3-44.8); MCH 33.6 pg (27.0-35.0); MCHC 34.4 g/dL (32.0-36.0); MCV 97.7 fL (80-100); Monocytes % 13.3 % (3.3-12.3); Neutrophils % 79.4 % (41.7-73.7); Nucleated Red Blood Cells % 0.1 % (0-0); Platelets 123 thou/uL (152-406); RBC Red Blood Cell Count 4.07 M/uL (4.33-5.43); Red Cell Distribution Width 13.5 % (12.1-15.2)
[2024-11-27 04:57] LABS: Albumin 2.9 g/dL (3.4-5.0); Albumin/Globulin Ratio 0.7 (1.1-1.8); Anion Gap 11.9 mEq/L (5.0-15.0); Globulin 4.3 g/dL (2.3-3.5); Potassium 3.9 mEq/L (3.5-5.1); Protein, Total 7.2 g/dL (6.4-8.2)
--- NOTE | 2024-11-27 15:08 | P.DS ---
Admission Date: 11/26/24 Discharge Date: 11/27/24 Reason for Admission: Elevated BP Brief History of Present Illness: 59 yrs old Male with past medical history of hypertension, medication noncompliance, arthritis, depression, gout who was brought to ER with generalized weakness and confusion and fatigue . Patient states that he drove around a lot before he could figure out how to get to the hospital. He also states that everybody in his life is and he has nobody left. He denies any pain however he does state he is depressed. He denies any drug use .He has no current physician and is on no medications. Patient was assessed in the ER and was found to have hypertensive emergency and was admitted for further management. Hospital Course: Mr. Swanson states that he was out of his blood pressure medications because his PCP retired. His blood pressure has trended down since arrival and he is stable for discharge with p.o. antihypertensives. He does have some mild renal insufficiency and improving his blood pressure should improve his kidney function. Vital Signs/Physical Exam: Temp Pulse Resp BP Pulse Ox 97.8 F 82 16 150/99 H 96 11/27/24 08:00 11/27/24 09:54 11/27/24 08:00 11/27/24 09:54 11/27/24 08:00 General: Alert, In no apparent distress, Oriented x3 HEENT: Atraumatic, Normocephalic, PERRLA Neck: Supple Respiratory: Clear to auscultation bilaterally, Normal air movement Cardiovascular: Normal pulses, Regular rate/rhythm, Normal S1 S2 Capillary refill: <2 Seconds Gastrointestinal: Normal bowel sounds, Soft and benign Musculoskeletal: No clubbing, No swelling Integumentary: No rashes, No breakdown Neurological: Normal speech, Normal tone, Normal affect Lymphatics: No axilla or inguinal lymphadenopathy External genitalia: Deferred Rectal: Deferred Laboratory Data at Discharge: WBC 4.40 thou/uL (4.3-10.9) 11/27/24 03:50 Hgb 13.7 g/dL (13.6-17.9) 11/27/24 03:50 Hct 39.7 % (39.6-49.0) 11/27/24 03:50 Plt Count 123 thou/uL (152-406) L 11/27/24 03:50 PT 11.7 SECONDS (9.4-12.5) 11/25/24 23:20 INR 1.12 11/25/24 23:20 APTT 29.6 SECONDS (24.3-36.9) 11/25/24 23:20 Sodium 133 mEq/L (136-145) L 11/27/24 03:50 Potassium 3.9 mEq/L (3.5-5.1) 11/27/24 03:50 BUN 20 mg/dL (7-18) H 11/27/24 03:50 Creatinine 1.74 mg/dL (0.70-1.30) H 11/27/24 03:50 Glucose 111 mg/dL (74-106) H 11/27/24 03:50 Magnesium 1.7 mg/dL (1.6-2.4) 11/25/24 23:20 Total Bilirubin 1.0 mg/dL (0.2-1.0) 11/27/24 03:50 AST 33 U/L (15-37) 11/27/24 03:50 ALT 53 U/L (16-61) 11/27/24 03:50 Alkaline Phosphatase 63 U/L (45-117) 11/27/24 03:50 Home Medications: Escitalopram [Lexapro*] 20 mg PO DAILY 08/23/19 carvediloL [Coreg*] 25 mg PO BID #60 tab 08/23/19 Escitalopram [Lexapro*] 20 mg PO DAILY #30 tab 11/27/24 Losartan Potassium [Cozaar*] 50 mg PO BID #60 tablet 11/27/24 carvediloL [Coreg*] 25 mg PO BID #60 tab 11/27/24 New Medications: carvediloL [Coreg*] 25 mg PO BID #60 tab Losartan Potassium [Cozaar*] 50 mg PO BID #60 tablet Escitalopram [Lexapro*] 20 mg PO DAILY #30 tab Diet: Low sodium Activity: Ad gianluca Followup: NONE,NONE [Primary Care Provider] - Serg Lynch MD [ACTIVE - CAN ADMIT] -
[2024-11-27 19:32] VITALS: BP 147/88; TEMP 98.1
--- NOTE | 2024-12-03 12:45 | EKG ---
Test Date: 2024-11-25 Test Time: 23:49:42 Mix House Operator: HUBER MEASUREMENT RESULTS: Intervals: Rate: 106 SD: 168 QRSD: 92 QT: 358 QTc: 475 [place]: P: 24 SD: 168 QRS: -28 T: 66 INTERPRETIVE STATEMENTS: Sinus tachycardia Otherwise normal ECG Compared to ECG 05/09/2021 12:43:01 Sinus rhythm no longer present Incomplete right bundle-branch block no longer present Electronically Signed On 12-03-24 12:25:56 TEAROOM HOSTESS by Jericho Zhao
== END 2024-11-27 17:09 | disposition home health service (06) | DRG 305 ==
LOC: ER 22:58 → ERHOLD 11-26 02:36 → 2ND 11-26 18:26
PROVIDERS: ADMIT Family Medicine; ATTEND Internal Medicine
DX: I16.0 Hypertensive urgency (principal); E87.1 Hypo-osmolality and hyponatremia; N17.9 Acute kidney failure, unspecified; E83.51 Hypocalcemia; I12.9 Hypertensive chronic kidney disease with stage 1 through stage 4 chronic kidney disease, or unspecified chronic kidney disease; N18.30 Chronic kidney disease, stage 3 unspecified; E78.5 Hyperlipidemia, unspecified; F41.9 Anxiety disorder, unspecified; F32.9 Major depressive disorder, single episode, unspecified; E87.8 Other disorders of electrolyte and fluid balance, not elsewhere classified; M19.90 Unspecified osteoarthritis, unspecified site; D69.6 Thrombocytopenia, unspecified; E66.9 Obesity, unspecified; M10.9 Gout, unspecified; N28.9 Disorder of kidney and ureter, unspecified; D72.819 Decreased white blood cell count, unspecified; R79.89 Other specified abnormal findings of blood chemistry; Z11.52 Encounter for screening for COVID-19; Z91.148 Patient's other noncompliance with medication regimen for other reason; Z79.02 Long term (current) use of antithrombotics/antiplatelets; Z79.899 Other long term (current) drug therapy; Z68.35 Body mass index [BMI] 35.0-35.9, adult
CPT/HCPCS: 36415; 70450; 71045; 80048; 80053; 80076; 80307; 81001; 83735; 84484; 85025; 85610; 85730; 87804; 87811; 93005; 96374; 96375; 99284; J0360; J1650; J2405